=== PATIENT | male | born 1965 | race Caucasian/White ===

== ENCOUNTER 2019-10-08 19:15 | Emergency (ER) | payer OTHER, SELFPAY ==
[2019-10-08 19:26] VITALS: BP 133/90; PULSE 80; RESP 18; TEMP 36.8; O2SAT 100
[2019-10-08 19:30] VITALS: RESP 15; TEMP 36.6
--- NOTE | 2019-10-08 19:42 | ED.FEVER ---
HPI - Fever General Chief Complaint: Fever Stated Complaint: fever, aches Time Seen by Provider: 10/08/19 19:35 Source: patient and family Mode of arrival: ambulatory Limitations: no limitations History of Present Illness HPI Narrative: Patient is a 53-year-old male who presents to emergency department for evaluation of fever chills body aches nausea congestion for the last 4 days with multiple other family members experiencing similar symptoms patient denies vomiting or diarrhea patient on arrival to emergency department in the room in no distress noting that he has been taking [id number] medication with improvement Related Data Allergies Allergy/AdvReac Type Severity Reaction Status Date / Time No Known Allergies Allergy Unknown Verified 10/25/16 19:56 Review of Systems Review of Systems: All systems reviewed & are unremarkable except as noted in HPI and below PMFSH Family History Family History (Updated 04/06/14 @ 07:13 by DOCTOR UNKNOWN) Sibling Depression Father Hypertension Family history of elevated blood lipids Cerebrovascular accident Mother Family history of sudden Other Diabetes mellitus Family history of allergic disorder Family history of cardiovascular disease Family history of coronary artery disease Social History Social History Smoking status: Former smoker Alcohol intake: never Exam Narrative: Exam Narrative: GENERAL: Well-appearing, well-nourished, and in no acute distress. HEAD: Normocephalic, atraumatic. EYES: PERRLA and EOMI. ENT: Nares clear, no rhinorrhea or epistaxis. Mucous membranes moist. NECK: Supple. No adenopathy or masses. CHEST: Clear to auscultation. No respiratory distress. No wheezes rales or rhonchi HEART: Regular rate and rhythm. No murmur heard. EXTREMITIES: Normal range of motion. No edema. SKIN: Warm, dry, no rash. NEURO: No focal deficits. Alert and oriented x3. Cranial nerves II through XII grossly intact PSYCH: Normal mood and affect. 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 Patient in the room in no distress aware of case findings treatment plan and diagnosis Vital Signs Vital signs: Vital Signs Temperature 98.3 F 10/08/19 19:26 Pulse Rate 80 10/08/19 19:26 Respiratory Rate 18 10/08/19 19:26 Blood Pressure 133/90 10/08/19 19:26 Pulse Oximetry 100 10/08/19 19:26 Temperature 98.3 F 10/08/19 19:26 Pulse Rate 80 10/08/19 19:26 Respiratory Rate 18 10/08/19 19:26 Blood Pressure 133/90 10/08/19 19:26 Pulse Oximetry 100 10/08/19 19:26 MDM - Fever MDM Narrative Medical decision making narrative: Patient in the room with fluid in no distress Lab Data Labs: Influenza A Screen Positive Reference Range: Negative Influenza B Screen Negative Reference Range: Negative Discharge Plan Discharge Clinical Impression: Influenza Patient Disposition: Home, Self-Care Condition: Stable Instructions: Antibiotic Form, Influenza (ED) Additional Instructions: Follow up with your primary care provider within 5-7 days. Go to ER for shortness of breath, difficulty breathing, chest pain, fever/chills, weakness, nauseau/vomitting, etc. or any other concerns. Stay well-hydrated Take any prescribed medications as directed. If you do not have a drug allergy to tylenol or motrin and can tolerate it then take tylenol or motrin as needed for discomfort/pain. Prescriptions: New fluticasone propionate [Flonase Allergy Relief] 50 mcg/actuation spray,suspension 1 spray NASAL Q12H PRN (Reason: allergy symptoms) Qty: 9.9 RF: 0 ondansetron 4 mg tablet,disintegrating 4 mg PO Q6H PRN (Reason: nausea and vomiting) Qty: 7 RF: 0 montelukast [Singulair] 10 mg tablet 10 mg PO DAILY Qty: 7 RF: 0 ibuprofen [IBU] 600 mg tablet 600 mg PO TID PRN (Reason: fever or pain) Qty: 7 RF: 0 No Acti
[2019-10-08 20:00] VITALS: BP 101/74; PULSE 100; RESP 19; TEMP 36.7; O2SAT 99
== END 2019-10-08 20:00 | disposition home or self-care (01) ==
LOC: ANHED 19:56
PROVIDERS: Emergency Provider Emergency Medicine; PCP Family Medicine
DX: J10.1 Influenza due to other identified influenza virus with other respiratory manifestations (principal)
CPT/HCPCS: 87804; 99283

== ENCOUNTER 2022-10-03 22:47 | Emergency (ER) | payer BC, SELFPAY ==
--- NOTE | ~2022-10-03 | CT_ITS ---
EXAMINATION: CTA chest abdomen pelvis DATE: 10/04/2022 00:56 INDICATION: Left scapular pain radiating down left arm. Evaluate for aortic dissection TECHNIQUE: Computed tomography angiography (CTA) of the chest, abdomen and pelvis was performed with 100 mL Omnipaque-350 intravenous contrast timed to evaluate the pulmonary arteries. Coronal maximum i ntensity projection 3D-reconstructions were created by the technologist. Automated exposure control a nd iterative reconstruction technique were employed. Exam dose: 1064.47 mGy-cm total exam DLP. COMPARISON: 10/28/2016 PA and lateral chest 12/21/2013 CT abdomen pelvis FINDINGS: There is no evidence of pulmonary embolism. No thoracic or abdominal aortic aneurysm or dissection. No hilar or mediastinal mass lesion or lymphadenopathy. Normal heart size. No pericardial or pleural effusion. Small sliding hiatal hernia. Status post cholecystectomy Status post right nephrectomy. No hepatic space-occupying mass lesion is evident. No bile duct or pancreatic duct dilatation. No ramos creatic mass lesion or calcification. Normal splenic size. Normal morphology of the adrenal glands. There are 2 probable hypernephromas of the left kidney, measuring approximately 3.5 cm at the anterio r upper pole and approximately 1.4 cm in the posteromedial mid left kidney. No left urinary tract calculus or hydroureteronephrosis. The urinary bladder appears unremarkable. Mi ld prostate enlargement. No intraperitoneal or retroperitoneal or pelvic mass lesion or adenopathy or ascites is noted otherwi se. Diverticulosis of the colon; no CT evidence of diverticulitis. There is a prominent epicardial talus: But no bowel obstruction. Normal appendix. No intraperitoneal free air. Approximately 3.3 x 3.6 cm fat-containing umbilical hernia. Prominent degenerative disc disease at L4-5 and L5-S1. No suspicious osteolytic or osteoblastic lesio ns. IMPRESSION: Suspected left hypernephromas Status right nephrectomy Status post cholecystectomy Small sliding hiatal hernia Diverticulosis of the colon No evidence of thoracic or abdominal aortic aneurysm or dissection Reviewed, dictated and finalized at [facility]. Reviewed, dictated and finalized at [facility]. 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
--- NOTE | 2022-10-03 22:49 | ECG_ITS ---
Measurements Intervals [place] Rate: 60 P: 31 GA: 187 QRS: 20 QRSD: 89 T: 50 QT: 415 QTc: 417 Interpretive Statements SINUS RHYTHM WITHIN NORMAL LIMITS NO PREVIOUS ECG AVAILABLE FOR COMPARISON Electronically Signed On 10-04-2022 7:55:06 QUICK SERVICE TECHNICIAN by Reg Rosales M.D.
[2022-10-03 23:04] VITALS: BP 201/94; PULSE 68; RESP 20; TEMP 37; O2SAT 100
--- NOTE | 2022-10-03 23:31 | ED.EXTPRO ---
HPI - Extremity Problem General Chief complaint: Extremity Problem,Nontraumatic <Maryjane Bales PA-C - Last Filed: 10/06/22 17:16> Stated complaint: shoulder pain <Maryjane Bales PA-C - Last Filed: 10/06/22 17:16> Time Seen by Provider: 10/03/22 23:14 <Maryjane Bales PA-C - Last Filed: 10/06/22 17:16> History of Present Illness HPI Narrative: 56-year-old male with a history of hypertension and hyperlipidemia reports for acute onset left scapular pain prior to arrival. Patient states he was changing his shirt when he began experiencing the pain. Reports it is sharp pain that radiates down his left arm. Denies paresthesias, weakness, neck pain. Reports he has never had pain like this before. States he initially put pain patches over his left scapula but took them off because he did not like the smell. Denies headache, vision changes, numbness or weakness, loss of bowel or bladder control or retention, saddle anesthesia, ataxia, chest pain, shortness of breath, abdominal pain, n/v/d. Patient reports he did take his blood pressure medications today. States his BP at home runs about 130/90. <Maryjane Bales PA-C - Last Filed: 10/06/22 17:16> Related Data Allergies/Adverse reactions: Allergies Allergy/AdvReac Type Severity Reaction Status Date / Time No Known Allergies Allergy Unknown Verified 07/23/22 10:07 <Maryjane Bales PA-C - Last Filed: 10/06/22 17:16> Review of Systems Review of Systems: CONSTITUTIONAL: Denies fever, chills EYES: Denies visual changes, redness, or discharge. ENT: Denies rhinorrhea, congestion, sore throat, or otalgia. CARDIOVASCULAR: Denies chest pain, palpitations, or edema. RESPIRATORY: Denies cough or dyspnea. GASTROINTESTINAL: Denies abdominal pain, nausea, vomiting, or diarrhea. GENITOURINARY: Denies dysuria or hematuria. SKIN: Denies rash or itching. MUSCULOSKELETAL: See HPI NEUROLOGIC: Denies headache, numbness, dizziness, or weakness. PSYCHIATRIC: Denies anxiety or depression. <Maryjane Bales PA-C - Last Filed: 10/06/22 17:16> [facility] Past Medical History Medical History: Medical History Acute bronchitis, unspecified Acute sinusitis, unspecified Acute upper respiratory infection, unspecified Allergic rhinitis, unspecified BMI 28.0-28.9,adult BMI 29.0-29.9,adult BMI 30.0-30.9,adult Bronchitis, not specified as acute or chronic Cough due to bronchospasm Dietary counseling and surveillance (08/12/17) Dysfunction of right eustachian tube Elevated blood pressure reading Encounter for immunization (06/18/15) Gastro-esophageal reflux disease without esophagitis Irregular heartbeat Low kidney function Other asthma Schatzki's ring Unspecified asthma, uncomplicated <Maryjane Bales PA-C - Last Filed: 10/06/22 17:16> Family History Family History: Family History Sibling Depression Father Hypertension Family history of elevated blood lipids Cerebrovascular accident Mother Family history of sudden Other Diabetes mellitus Family history of allergic disorder Family history of cardiovascular disease Family history of coronary artery disease <Maryjane Bales PA-C - Last Filed: 10/06/22 17:16> Social History Social History: Social History Smoking status: Former smoker (1997) Second hand tobacco smoke exposure: Yes Alcohol intake: never Substance use: never Substance use type: does not use Living arrangements: with family Occupation/Education: occupation 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 HEAD: Nor
[2022-10-03 23:34] VITALS: BP 178/105
[2022-10-03 23:35] VITALS: BP 173/102
[2022-10-03 23:43] LABS: Basophils Percent Auto 0.5 % (0.2-1.2); Eosinophils Absolute Auto 0.2 K/mm3 (0-0.3); Hematocrit 45.5 % (42.0-52.0); Immature Granulocyte Absolute 0.01 K/mm3 (0.00-0.031); Immature Granulocyte Percent A 0.2 % (0-0.5); Lymphocytes Absolute Auto 1.99 K/mm3 (0.9-3.2); Lymphocytes Percent Auto 32.8 % (18.3-44.2); Mean Corpuscular Hemoglobin 29.6 pg (26-34); Mean Corpuscular Volume 89.9 fl (80-100); Mean Platelet Volume 10.1 fl (7.4-10.4); Monocytes Absolute Auto 0.7 K/mm3 (0.1-0.6); Monocytes Percent Auto 11.7 % (2.6-8.5); Neutrophils Absolute Auto 3.1 K/mm3 (1.3-6.7); Neutrophils Percent Auto 50.8 % (45.5-73.1); Platelet Count Result 228 k/mm3 (150-375); Red Blood Count 5.06 M/mm3 (4.6-6.20); Red Cell Distribution Width 13.4 % (11.5-14.5); White Blood Count 6.1 K/mm3 (4.5-10.0)
[2022-10-03 23:51] VITALS: BP 158/105; PULSE 77; RESP 16; O2SAT 100
[2022-10-03] MEDS: CYCLOBENZAPRINE HCL 10 MG TABLET PO (23:51)
[2022-10-03 23:57] LABS: Alanine Aminotransferase 33 U/L (6-50); Albumin Level 4.5 g/dL (3.5-5.1); Alkaline Phosphatase 105 U/L (38-126); Anion Gap 7 mmol/L (8-16); Aspartate Amino Transferase 29 U/L (17-59); Bilirubin,Total 0.6 mg/dL (0.2-1.3); Blood Urea Nitrogen 14 mg/dL (9-20); Calcium 8.9 mg/dL (8.4-10.2); Carbon Dioxide 27 mmol/L (22-30); Chloride 105 mmol/L (98-107); Estimated CRCL calculation 66 ml/min; Estimated Glomerular Filt Rate > 60; Glucose 135 mg/dL (65-110); Potassium 3.8 mmol/L (3.4-5.0); Sodium 139 mmol/L (137-145)
[2022-10-04] VITALS (20 sets, daily range): BP systolic 126–183; BP diastolic 76–109; PULSE 58–85; RESP 12–21
[2022-10-04 00:09] LABS: NT Pro B Type Natriuretic Pept < 20 pg/mL (19.9-100); Troponin I < 0.012 ng/mL (0.000-0.034)
[2022-10-04] MEDS: MORPHINE SULFATE (*CRX) 4 MG/ML INJ IV PUSH (01:37)
[2022-10-04 02:52] LABS: Troponin I < 0.012 ng/mL (0.000-0.034)
[2022-10-04 02:58] LABS: Troponin I < 0.012 ng/mL (0.000-0.034)
== END 2022-10-04 04:12 | disposition home or self-care (01) ==
PROVIDERS: Emergency Provider Physician Assistant; PCP Family Medicine
DX: S46.912A Strain of unspecified muscle, fascia and tendon at shoulder and upper arm level, left arm, initial encounter (principal); I16.0 Hypertensive urgency; I10 Essential (primary) hypertension; E78.5 Hyperlipidemia, unspecified; J45.909 Unspecified asthma, uncomplicated; K21.9 Gastro-esophageal reflux disease without esophagitis; Z87.891 Personal history of nicotine dependence; X58.XXXA Exposure to other specified factors, initial encounter
CPT/HCPCS: 36415; 71275; 74174; 80053; 83880; 84484; 85025; 93005; 99284; A9270; J2270; Q9967

== ENCOUNTER 2022-10-30 13:45 | Outpatient (CLI) | payer BC, SELFPAY ==
--- NOTE | ~2022-10-30 | MR_ITS ---
EXAMINATION: MR abdomen wo/w con INDICATION: Indeterminate left kidney masses on CT, history of right nephrectomy TECHNIQUE: Coronal SSFSE ARC, WATER:coronal LAVA-FLEX, Coronal 2D FIESTA FatSat, Axial SSFSE BH ARC, Axial 3D DualEcho BH, Axial SSFSE-IR, Axial DWI b=500, Axial 2D FIESTA FatSat, pre and dynamic postco ntrast Axial LAVA ARC, postcontrast Coronal In and Opposed phase LAVA FLEX COMPARISON: 10/04/2022 CONTRAST: Multihance, 20 cc FINDINGS: There are changes of cholecystectomy and right nephrectomy. There is a 3.8 x 3.1 cm mass in the left kidney upper pole/mid kidney which is mildly T1 hyperintense and demonstrates heterogeneous T2 signal intensity. The mass demonstrates heterogeneous enhancement after contrast administration. There is a 1.3 x 1.3 cm round mass in the posterior aspect of the left mid kidney which is essentiall y T1 and T2 isointense with slightly heterogeneous internal enhancement after contrast administration . The liver, spleen, pancreas, and adrenal glands are normal. No pathologically enlarged abdominal ly mph nodes are identified. There is a moderate volume of colonic stool. There are no dilated loops of bowel. IMPRESSION: 1. Two left kidney masses suspicious for renal cell carcinoma. Reviewed, dictated and finalized at [facility].
== END 2022-10-30 13:46 | disposition home or self-care (01) ==
PROVIDERS: PCP Family Medicine; Visit Provider Physician Assistant Medical
DX: N28.89 Other specified disorders of kidney and ureter (principal)
CPT/HCPCS: 74183; A9577

== ENCOUNTER 2023-02-02 05:07 | Inpatient (IN) | payer BC, SELFPAY ==
[2023-02-02] VITALS (35 sets, daily range): BP systolic 126–184; BP diastolic 86–117; PULSE 65–133; RESP 17–48; TEMP 36.3–37.4; O2SAT 90–99; BMI 36.5; BMI 36.3
--- NOTE | ~2023-02-02 | XR_ITS ---
EXAMINATION: XR chest 1V portable Exam Date/Time: 02/02/2023 18:13 CDT HISTORY: SOA Comparison: 10/28/2016. RESULT: Lines, tubes, and devices: Cholecystectomy clips. Lungs and pleura: Low volumes with crowding. Segmental/lobar airspace disease in the left lower lung . Cardiomediastinal silhouette: Stable. Other: No acute osseous or upper abdominal finding. IMPRESSION: Left lower lobe airspace disease may represent atelectasis or pneumonia. Reviewed, dictated and finalized at location K.
--- NOTE | ~2023-02-02 | CT_ITS ---
Non-contrast CT scan of the Abdomen and Pelvis Clinical indication: Abdominal pain Technique: 2.5 mm axial scans were obtained through the abdomen and pelvis without intravenous or or al contrast. Dose reduction technique was used on this scan by utilizing automated exposure control a nd iterative reconstruction technique. The dose-length product (DLP) was 857.70 mGy-cm. COMPARISON: 10/04/2022 Findings: Images through the lung bases reveal partially imaged moderate left pleural effusion, with extensive, possible complete, left lower lobe atelectasis. There is minimal right pleural effusion w ith partial right lower lobe atelectasis.. The liver, spleen, pancreas, left kidney, and adrenals appear normal. Patient is status post cholecys tectomy and right nephrectomy. There is no aortic aneurysm. There is no evidence of bowel obstruction. Fat-containing umbilical and ventral hernias are present. There is small to moderate abdominopelvic ascites. Small bubbles of pneumoperitoneum are present, par ticularly in the left upper quadrant region. There is soft tissue gas along the anterior abdominal wa ll, at the left upper quadrant, bilateral lower quadrants, and extending just anterior subcutaneous s oft tissues in the pelvis and into the upper perineum. There is infiltrative change in the mesentery in the right mid abdomen. Images through the pelvis were performed. Urinary bladder unremarkable. Prostate gland and seminal ve sicles are unremarkable. Impression: Small to moderate abdominopelvic ascites. If there is any concern for urinary extravasation given bambi arent history of recent left renal procedure, then consider CT IVP for further evaluation for extrava sation of contrast. Small amount of pneumoperitoneum, as well as extensive soft tissue gas along the abdominal wall, as a ll presumably postoperative in nature, with history of recent surgery/procedure. Previously identified left renal masses are poorly evaluated on noncontrast CT scan. Infiltrative change in the right mesentery could reflect mesenteric edema, or possibly developing ome ntal infarct. Moderate left pleural effusion with extensive left lower lobe atelectasis, and minimal right pleural effusion with partial right lower lobe atelectasis. Small fat-containing umbilical and ventral hernias, unchanged. Reviewed, dictated and finalized at location . Impression: Small to moderate abdominopelvic ascites. If there is any concern for urinary e xtravasation given apparent history of recent left renal procedure, then consid er CT IVP for further evaluation for extravasation of contrast. Small amount of pneumoperitoneum, as well as extensive soft tissue gas along th e abdominal wall, as all presumably postoperative in nature, with history of re cent surgery/procedure. Previously identified left renal masses are poorly evaluated on noncontrast CT scan. Infiltrative change in the right mesentery could reflect mesenteric edema, or p ossibly developing omental infarct. Moderate left pleural effusion with extensive left lower lobe atelectasis, and minimal right pleural effusion with partial right lower lobe atelectasis. Small fat-containing umbilical and ventral hernias, unchanged.
--- NOTE | ~2023-02-02 | CT_ITS ---
EXAMINATION: CT abdomen pelvis wo con DATE: 02/02/2023 17:36 INDICATION: epigastric pain, condition change. TECHNIQUE: Computed tomography (CT) of the abdomen and pelvis was performed without intravenous contr ast. Automated exposure control and iterative reconstruction technique were employed. The dose-length product was 1675.26 mGy-cm. COMPARISON: Same date at 7:41 AM. FINDINGS: Lower thorax: Stable moderate left and small right pleural effusions. Stable bibasilar atelectasis/co nsolidation. Liver: Normal. Biliary/Gallbladder: Gallbladder is absent. No bile duct dilation. Pancreas: No mass or duct dilation. Spleen: Normal. Adrenals:No mass. Kidneys: Hyperdense material associated with the left kidney, possibly postsurgical in nature. Perine phric fluid along the posterior aspect of the kidney may represent postoperative hematoma. Status pos t right nephrectomy GI tract: No small or large bowel dilation. Normal appendix. Mesentery/Peritoneum: Moderate ascites, slightly increased in volume. Increasing size of the somewhat loculated appearing anterior pararenal and left paracolic gutter fluid collections that may be in co mmunication with the perirenal space as well as the peritoneal fluid. Similar infiltrative change in the right mesentery which may represent edema or omental infarct. Retroperitoneum: No mass. Pelvis: Pelvic organs are within normal limits. Soft Tissues: Uncomplicated fat-containing umbilical hernia. Bones: No acute osseous finding. IMPRESSION: Generally increasing volume of the moderate intra-abdominal fluid. Similar degree of mild pneumoperitoneum. Similar moderate subcutaneous gas in the lower abdomen. Stab le bibasilar atelectasis/consolidation and small bilateral effusions. Somewhat loculated appearing fluid collections in the anterior pararenal space and left paracolic gut ter could represent early abscess formation from bowel perforation/postoperative infection, postopera tive hemorrhage, or urinoma. Reviewed, dictated and finalized at location K. IMPRESSION: Generally increasing volume of the moderate intra-abdominal fluid. Similar degree of mild pneumoperitoneum. Similar moderate subcutaneous gas in t he lower abdomen. Stable bibasilar atelectasis/consolidation and small bilatera l effusions. Somewhat loculated appearing fluid collections in the anterior pararenal space and left paracolic gutter could represent early abscess formation from bowel pe rforation/postoperative infection, postoperative hemorrhage, or urinoma.
--- NOTE | ~2023-02-02 | XR_ITS ---
EXAMINATION: XR retrograde pyelo w/stent LT DATE: 02/02/2023 20:00 CDT INDICATION: LEFT RETRO W/STENT PLACEMENT . TECHNIQUE: 7 fluoroscopic images of the left abdomen and pelvis were obtained during left retrograde pyelography with stent placement performed by the surgeon. I was not present in the operating room. F luoroscopy exposure time was 92 seconds. DAP 1.65 mGym2. COMPARISON: CT abdomen and pelvis, same date FINDINGS: Contrast fills a normal-appearing left collecting system. Wire access obtained to the upper collectin g system. Post stent deployment, the proximal coil projects over the renal pelvis. The distal coil wa s not imaged. IMPRESSION: Fluoroscopic documentation of left retrograde pyelography with stent placement. Please refer to the o perative note for complete procedural details . Reviewed, dictated and finalized at location K. IMPRESSION: Fluoroscopic documentation of left retrograde pyelography with stent placement. Please refer to the operative note for complete procedural details .
[2023-02-02 05:35] LABS: Basophils Percent Auto 0.3 % (0.2-1.2); Eosinophils Absolute Auto 0.4 K/mm3 (0-0.3); Eosinophils Percent Auto 3.2 % (0-4.4); Hematocrit 43.9 % (42.0-52.0); Hemoglobin 14.7 g/dL (14.0-18.0); Immature Granulocyte Absolute 0.09 K/mm3 (0.00-0.031); Immature Granulocyte Percent A 0.6 % (0-0.5); Lymphocytes Absolute Auto 0.96 K/mm3 (0.9-3.2); Lymphocytes Percent Auto 6.9 % (18.3-44.2); Mean Corpuscular HGB Conc 33.5 g/dl (32-36); Mean Corpuscular Hemoglobin 30.5 pg (26-34); Mean Corpuscular Volume 91.1 fl (80-100); Mean Platelet Volume 9.8 fl (7.4-10.4); Monocytes Absolute Auto 1.3 K/mm3 (0.1-0.6); Neutrophils Absolute Auto 11.2 K/mm3 (1.3-6.7); Platelet Count Result 353 k/mm3 (150-375); Red Blood Count 4.82 M/mm3 (4.6-6.20); Red Cell Distribution Width 13.4 % (11.5-14.5); White Blood Count 13.9 K/mm3 (4.5-10.0)
[2023-02-02 06:23] LABS: Alanine Aminotransferase 155 U/L (6-50); Albumin Level 3.8 g/dL (3.5-5.1); Alkaline Phosphatase 224 U/L (38-126); Anion Gap 9 mmol/L (8-16); Aspartate Amino Transferase 93 U/L (17-59); Bilirubin,Total 0.8 mg/dL (0.2-1.3); Blood Urea Nitrogen 43 mg/dL (9-20); Calcium 8.7 mg/dL (8.4-10.2); Carbon Dioxide 24 mmol/L (22-30); Chloride 99 mmol/L (98-107); Estimated CRCL calculation 15 ml/min; Estimated Glomerular Filt Rate 11; Glucose 123 mg/dL (65-110); Lipase 284 U/L (23-300); Potassium 4.2 mmol/L (3.4-5.0); Sodium 132 mmol/L (137-145)
[2023-02-02 06:37] LABS: Appearance Urine Clear (Clear); Bacteria Urine None Seen /hpf; Bilirubin Urine Negative (Negative); Blood Urine Negative (Negative); Color Urine Yellow (Yellow); Glucose Urine UA Negative (Negative); Ketones Urine 1+ mg/dL (Negative); Leukocyte Esterase Ur Negative LEU/UL (Negative); Nitrate Urine Negative (Negative); Non Pathogenic Casts 0-2; Protein Urine 1+ mg/dL (Negative); RBC Urine 0-2 /hpf (0-2); Specific Grav Ur 1.025 (1.001-1.035); Spermatozoa Urine Present; Squamous Epithelial Cell Urine None seen /hpf (Few); WBC Urine 0-5 /hpf
[2023-02-02 06:38] LABS: Add Urine Microscopic? YES
[2023-02-02] MEDS: MORPHINE SULFATE (*CRX) 4 MG/ML INJ IV PUSH ×2 (07:31→16:32)
[2023-02-02] MEDS: SODIUM CHLORIDE 0.9% IV 1,000 ML 999 ML IV CONT (07:33)
--- NOTE | 2023-02-02 07:37 | PC.NURSE ---
assumed care from Cat. Pt resting in stretcher at this time
--- NOTE | 2023-02-02 09:09 | ED.ABDPAIN ---
HPI - Abdominal Pain General Chief Complaint: Abdominal Pain Stated Complaint: abd pain Time Seen by Provider: 02/02/23 06:59 History of Present Illness HPI narrative: Patient is a 57-year-old male who presents ER with lower abdominal pain. Reports he went from lying to sitting this morning had sudden onset pain in his lower abdomen. [place] like tearing going down towards his groin. It hurts with any type of movement. No new swelling. Patient is 1 week status post partial nephrectomy on the left side for renal mass. It was performed by Dr. Prado at [facility]. Patient denies any fevers or chills or sweats. He has been managing his pain with oxycodone at home. Reports no bowel movement or passage of gas in 3 days. Related Data Allergies Allergy/AdvReac Type Severity Reaction Status Date / Time No Known Allergies Allergy Unknown Verified 02/02/23 18:10 [facility] Past Medical History Medical History Acute bronchitis, unspecified Acute sinusitis, unspecified Acute upper respiratory infection, unspecified Allergic rhinitis, unspecified BMI 28.0-28.9,adult BMI 29.0-29.9,adult BMI 30.0-30.9,adult BMI 34.0-34.9,adult Bronchitis, not specified as acute or chronic Cough due to bronchospasm Dietary counseling and surveillance (08/12/17) Dysfunction of right eustachian tube Elevated blood pressure reading Encounter for immunization (06/18/15) Gastro-esophageal reflux disease without esophagitis Irregular heartbeat Low kidney function Other asthma Schatzki's ring Unspecified asthma, uncomplicated Family History Family History Sibling Depression Father Hypertension Family history of elevated blood lipids Cerebrovascular accident Mother Family history of sudden Other Diabetes mellitus Family history of allergic disorder Family history of cardiovascular disease Family history of coronary artery disease Social History Social History Smoking status: Former smoker (1997) Second hand tobacco smoke exposure: Yes Alcohol intake: never Substance use: never Substance use type: does not use Living arrangements: with family Occupation/Education: occupation 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 HEAD: Normocephalic, atraumatic. EYES: PERRL and EOMI. ENT: Mucous membranes moist. CHEST: Clear to auscultation. No respiratory distress. HEART: Regular rate and rhythm. Normal peripheral pulses. ABDOMEN: Soft, mildly distended abdomen that is without localizing tenderness, normal bowel sounds. Crepitus palpated over the lower abdomen and pubic region. Well-healing surgical sites with some mild bruising. EXTREMITIES: Normal range of motion. 1+ edema. SKIN: Warm, dry, no rash. NEURO: Alert and oriented x3. PSYCH: Normal mood and affect. Course Course Emergency Course: Patient resting comfortably. Informed of results. Excepted by the hospitalist service at [facility] at [address] Kearns, the nurse practitioner for the urology group is also being contacted. Patient is receiving IV hydration and is feeling improved. 1915: Patient had been hydrating throughout the day awaiting a bed at [facility]. He developed sudden onset epigastric pain around 1730. Patient received morphine and Dilaudid. He was reevaluated and sent for emergent CT of the abdomen pelvis without contrast to see if there were any changes. The symptoms occurred while speaking with his primary urologist. After reassessment of the patient and reevaluation the CT scan it was determined by urology that the patient should go to the OR here at [place] to have a stent placed placed additionally ajay
--- NOTE | 2023-02-02 12:14 | PC.NURSE ---
follow up call with [facility] waiting for their hospitalist to call back
--- NOTE | 2023-02-02 12:50 | PC.NURSE ---
[facility] called and states that pt is accepted but no bed ready at this time They got more information about pt and states that they will look for a bed and call when one is available
[2023-02-02] MEDS: SODIUM CHLORIDE 0.9% IV 1,000 ML 150 ML IV CONT (12:55)
--- NOTE | 2023-02-02 13:20 | PC.NURSE ---
Pt meal ordered at this time.
--- NOTE | 2023-02-02 15:20 | PC.NURSE ---
Pt placed in a hospital bed at this time. still waiting for bed placement at [facility]
--- NOTE | 2023-02-02 17:00 | PC.NURSE ---
1700: Pt calling out stating that he is having increase in upper abd pain and having trouble breathing. This RN observed pt has increased work of breathing and appears in more pain. notified.
[2023-02-02] MEDS: HYDROmorphone HCL INJ (*CRX) 1 MG/ML SYR IV PUSH (17:13)
--- NOTE | 2023-02-02 18:15 | PC.NURSE ---
Checked on pt. Pt diaphoretic and hypoxic at this time. Placed pt on 2 L NC. MD notified and ordered to stop IV fluids at this time. Pt states the pain is better but still feels SOB.
--- NOTE | 2023-02-02 19:40 | WPDANESEPPF ---
Anes - Initial Pre Proc Eval Procedure: Operation Date: 02/02/23 20:00 Proposed Procedures p Cysto, RPG, Stone Ext, Stent Placement(Left) - Zoltan Grimes MD Date/Time: 02/02/23 19:40 Surgeon: Zoltan Grimes MD Pre Op Diagnosis: abd pain Patient Data Age: 57 Gender: M Height: 1.63 m Weight: 95.25 kg Last Vital Signs Temp 37.4 C 02/02/23 18:05 Pulse 128 H 02/02/23 19:01 Resp 31 H 02/02/23 19:01 BP 140/94 H 02/02/23 19:01 Pulse Ox 94 02/02/23 19:01 O2 Del Method Nasal Cannula 02/02/23 18:18 O2 Flow Rate 2 02/02/23 18:18 Allergies Allergy/AdvReac Type Severity Reaction Status Date / Time No Known Allergies Allergy Unknown Verified 02/02/23 18:10 Home Medications Medication Instructions Recorded Confirmed Type albuterol sulfate 90 mcg/actuation 2 inh inhalation Q4H PRN shortness 08/05/22 10/07/22 Rx aerosol inhaler of breath or wheezing #8.5 grams amlodipine 5 mg tablet 5 mg PO DAILY #90 tabs 08/05/22 10/07/22 Rx montelukast 10 mg tablet 10 mg PO QHS #90 tabs 08/05/22 10/07/22 Rx (Singulair) rosuvastatin 20 mg tablet (Crestor) 20 mg PO DAILY #90 tabs 08/05/22 10/07/22 Rx loratadine 5 mg-pseudoephedrine ER 1 tablet PO Q12H PRN allergy 01/07/23 Rx 120 mg tablet,extended symptoms #60 tabs release,12hr (Claritin-D 12 Hour) Laboratory Tests 02/02/23 02/02/23 05:24 05:58 WBC 13.9 H K/mm3 (4.5-10.0) RBC 4.82 M/mm3 (4.6-6.20) Hgb 14.7 g/dL (14.0-18.0) Hct 43.9 % (42.0-52.0) MCV 91.1 fl (80-100) MCH 30.5 pg (26-34) MCHC 33.5 g/dl (32-36) RDW 13.4 % (11.5-14.5) Plt Count 353 D k/mm3 (150-375) MPV 9.8 fl (7.4-10.4) Immature Gran % (Auto) 0.6 H % (0-0.5) Neut % (Auto) 80.0 H % (45.5-73.1) Lymph % (Auto) 6.9 L % (18.3-44.2) [place] % (Auto) 9.0 H % (2.6-8.5) Eos % (Auto) 3.2 % (0-4.4) Baso % (Auto) 0.3 % (0.2-1.2) Lymph # (Auto) 0.96 K/mm3 (0.9-3.2) [place] # (Auto) 1.3 H K/mm3 (0.1-0.6) Eos # (Auto) 0.4 H K/mm3 (0-0.3) Baso # (Auto) 0.0 K/mm3 (0.0-0.1) Abs Immat Gran (auto) 0.09 H K/mm3 (0.00-0.031) Absolute Neuts (auto) 11.2 H K/mm3 (1.3-6.7) Absolute Nucleated RBC 0.0 K/mm3 (0.0-0.012) Nucleated RBC % 0.0 % (0.0-0.2) Sodium 132 L mmol/L (137-145) Potassium 4.2 mmol/L (3.4-5.0) Chloride 99 mmol/L (98-107) Carbon Dioxide 24 mmol/L (22-30) Anion Gap 9 mmol/L (8-16) BUN 43 H D mg/dL (9-20) Creatinine 5.30 H mg/dL (0.7-1.3) Estim Creat Clear Calc 15 ml/min Estimated GFR 11 L (59 - ) Glucose 123 H mg/dL (65-110) Calcium 8.7 mg/dL (8.4-10.2) Total Bilirubin 0.8 mg/dL (0.2-1.3) AST 93 H U/L (17-59) ALT 155 H U/L (6-50) Alkaline Phosphatase 224 H U/L (38-126) Total Protein 7.0 g/dL (6.3-8.2) Albumin 3.8 g/dL (3.5-5.1) Lipase 284 U/L (23-300) Urine Color Yellow (Yellow) Urine Appearance Clear (Clear) Urine pH 5.0 (5.0-9.0) Ur Specific [place] 1.025 (1.001-1.035) Urine Protein 1+ H mg/dL (Negative) Urine Glucose (UA) Negative mg/dL (Negative) Urine Ketones 1+ H mg/dL (Negative) Ur Blood (Man) Negative (Negative) Urine Nitrate Negative (Negative) Urine Bilirubin Negative (Negative) Urine Urobilinogen 1.0 mg/dL (<2.0) Leukocyte Esterase Rfl Negative CALE/UL (Negative) Urine RBC 0-2 /hpf (0-2) Urine WBC 0-5 /hpf Ur Squamous Epith Cells None seen /hpf (Few) Urine Bacteria None seen /hpf Urine Casts 0-2 Sperm Presence Present Patient hx anesthesia problems: none Family hx anesthesia problems: none Results Review: All pre-operat
--- NOTE | 2023-02-02 19:44 | WPDHPUPDATE1 ---
History and Physical Update Update Date/Time: 02/02/23 19:44 History and Physical has been reviewed, including an updated exam of the patient. There are NO changes in the patient's condition. Risks, benefits, and alternatives have been discussed and questions answered. Patient agrees to proceed with procedure. Proceed with cystoscopy, left retrograde pyelogram left ureteral stent placement
--- NOTE | 2023-02-02 19:44 | PM.IMHP ---
H&P: HPI History of Present Illness Date/Time: 02/02/23 19:44 Chief Complaint: Abdominal pain with left perirenal fluid collection possible left urinoma Narrative: Is a 57-year-old male with a solitary left kidney who just underwent a partial robotic nephrectomy by Dr. Conde last Thursday. Patient was discharged from [facility] on Thursday and been doing well but then developed significant abdominal pain. He presented emergency room here at [place] as there were no beds available at [facility]. CT scan revealed abdominal distention with some ascites as well as a fluid collection around the left kidney. Patient had been waiting 12 hours for transfer but again no beds have been available. At this point time we are going to proceed with a cystoscopy, left retrograde pyelogram left stent placement and Little catheter placement for maximal drainage. He will require percutaneous drain to be placed for drainage of the demetria renal fluid. Review of Systems Review of Systems: All systems reviewed & are unremarkable except as noted in HPI and below PMFSH Past Medical History Medical History Acute bronchitis, unspecified Acute sinusitis, unspecified Acute upper respiratory infection, unspecified Allergic rhinitis, unspecified BMI 28.0-28.9,adult BMI 29.0-29.9,adult BMI 30.0-30.9,adult BMI 34.0-34.9,adult Bronchitis, not specified as acute or chronic Cough due to bronchospasm Dietary counseling and surveillance (08/12/17) Dysfunction of right eustachian tube Elevated blood pressure reading Encounter for immunization (06/18/15) Gastro-esophageal reflux disease without esophagitis Irregular heartbeat Low kidney function Other asthma Schatzki's ring Unspecified asthma, uncomplicated Surgical History Surgical History Hx of partial nephrectomy last week 01/26/23 Family History Family History Sibling Depression Father Hypertension Family history of elevated blood lipids Cerebrovascular accident Mother Family history of sudden Other Diabetes mellitus Family history of allergic disorder Family history of cardiovascular disease Family history of coronary artery disease Social History Social History Smoking status: Former smoker (1997) Second hand tobacco smoke exposure: Yes Alcohol intake: never Substance use: never Substance use type: does not use Living arrangements: with family Occupation/Education: occupation 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 Gender identity (if verbalized by the patient): Male Meds Home Medications and Allergies Home Medications Medication Instructions Recorded Confirmed Type albuterol sulfate 90 mcg/actuation 2 inh inhalation Q4H PRN shortness 08/05/22 10/07/22 Rx aerosol inhaler of breath or wheezing #8.5 grams amlodipine 5 mg tablet 5 mg PO DAILY #90 tabs 08/05/22 10/07/22 Rx montelukast 10 mg tablet 10 mg PO QHS #90 tabs 08/05/22 10/07/22 Rx (Singulair) rosuvastatin 20 mg tablet (Crestor) 20 mg PO DAILY #90 tabs 08/05/22 10/07/22 Rx loratadine 5 mg-pseudoephedrine ER 1 tablet PO Q12H PRN allergy 01/07/23 Rx 120 mg tablet,extended symptoms #60 tabs release,12hr (Claritin-D 12 Hour) Allergies Allergy/AdvReac Type Severity Reaction Status Date / Time No Known Allergies Allergy Unknown Verified 02/02/23 18:10 Vital Signs Vital Signs - 24 hr 02/02/23 05:09 02/02/23 05:17 02/02/23 07:00 Temperature 36.3 C L Pulse Rate 113 H 110 H 108 H Respiratory Rate 31 H 33 H 26 H Blood Pressure 150/104 H 142/97 H 129/95 H Pulse Oximetry 97 96 96 Oxygen Delivery Room Air Oxygen Flow Rate 02/02/23 07:15 02/02/23 07:30 02/02/23 09:15 Temperature Pulse Rate 109
[2023-02-02] MEDS: LIDOCAINE HCL 2% GEL UROJET 10 ML PKG MUCOUS MEM (20:24)
--- NOTE | 2023-02-02 20:32 | W.PM.PROC2 ---
Procedure Note - Detailed Date of Procedure 02/02/23 Pre-op Diagnosis abd pain, possible urine leak with urinoma Post-op Diagnosis Same Procedure Performed Cystoscopy, left retrograde pyelogram, left stent placement 4.8 [place] contour, complex Little catheter placement Surgeon Zoltan Grimes MD Anesthesia General Description of Procedure Patient is taken the operative suite correctly identified. Once anesthesia was obtained was placed in dorsal lithotomy position and prepped and draped usual sterile fashion. Twenty-two [place] scope was inserted the bladder. He has some mild lateral lobe hypertrophy. The bladder itself has no tumors. The left orifice was cannulated with a [place] and a pyelogram was performed. It was noted that with gentle pressure and with advancement of the contrast there was extravasation it near the upper pole. We were able to manipulate a guidewire into what appears to be the renal pelvis although it is very difficult to visualize. We attempted to place a 6 [place] contour stent over a Super Stiff wire but could not advance it past the distal ureter. Is unclear why this resistance was met. None the less it was unable replaced and thus a 4.8 [place] contour stent was then placed with what appears to be the proximal end coiled in the renal pelvis and the distal in the bladder. 2% viscous lidocaine was inserted urethra. Sixteen [place] Little catheter was placed with 10 cc in the balloon. He was taken recovery stable condition. Will discuss with radiologist regarding placement of a percutaneous drain Estimated Blood Loss 0 Drains Yes Packing No Pathology None sent Complications No immediate complications Condition Stable Disposition PACU
[2023-02-02] MEDS: LACTATED RINGERS 1,000 ML 30 ML IV CONT (20:36)
[2023-02-02 21:09] LABS: Glucose Point of Care 123 mg/dl (65-105)
[2023-02-02 21:26] LABS: Anion Gap 10 mmol/L (8-16); Blood Urea Nitrogen 44 mg/dL (9-20); Calcium 8.3 mg/dL (8.4-10.2); Carbon Dioxide 18 mmol/L (22-30); Chloride 105 mmol/L (98-107); Estimated CRCL calculation 16 ml/min; Estimated Glomerular Filt Rate 12; Glucose 129 mg/dL (65-110); Potassium 5.2 mmol/L (3.4-5.0); Sodium 133 mmol/L (137-145)
--- NOTE | 2023-02-02 22:11 | ADMGEN ---
This patient, Bear Mcrae, was admitted to IMU Room 200-01. Patient/family oriented to hospital policies and general routines including ID bracelet, bed and alarms, visiting hours, pain management, procedures, bathroom and other care routines, personal items, smoking policy, room service/diet, and visiting hours. Information on how to activate the Rapid Response Team has been discussed. Patient/Family are encouraged to report perceived risks to care and to ask questions if they do not understand what they are told or what they should do.
[2023-02-02] MEDS: ceFAZolin 1 GM/NS 50 ML 1 GM/50 ML BAG IVPB (23:21)
--- NOTE | 2023-02-02 23:23 | PM.IMCN ---
Assessment and Plan Assessment and plan (1) Acute postoperative abdominal pain: Code(s): G89.18 - Other acute postprocedural pain; R10.9 - Unspecified abdominal pain Status: Acute (2) Acute on chronic renal failure: Qualifiers: Acute renal failure type: unspecified Chronic kidney disease stage: stage 3 (moderate) Chronic kidney disease stage 3 subtype: unspecified whether 3a or 3b Qualified Code(s): N17.9 - Acute kidney failure, unspecified; N18.30 - Chronic kidney disease, stage 3 unspecified Code(s): N17.9 - Acute kidney failure, unspecified; N18.9 - Chronic kidney disease, unspecified Status: Acute (3) Leakage of urine from ureter: Code(s): N28.89 - Other specified disorders of kidney and ureter Status: Acute Plan The patient underwent emergent cystoscopy to treat acutely developing year old well. Ureteral stent was placed per Urology. We were consulted for medical management. Although acutely ill-appearing postoperatively the patient reports he appears significantly improved. He is having drainage of urine from his bladder. As I was discussing further plan with the patient and his son who are at bedside nursing staff came into notify me that the patient now has a bed at [facility]. Patient is not having any active pain. The patient has acute on chronic kidney injury due to your [place] and likely complications of his right partial nephrectomy in the setting of patient with unilateral kidney. Will continue IV fluid hydration. The patient's creatinine is already improved compared to original value. Patient would benefit from bicarb infusion instead of his normal saline. The patient now has hyperkalemia due to his kidney injury. Will avoid further nephrotoxic medications. The hyperkalemia is mild. Will hold off on any other treatment. But again bicarb would be beneficial. Before these orders could be entered the patient was transferred to [facility]. The patient's blood pressures are stable. Norvasc can be held for the time being. The patient's case was discussed with the patient and his son at bedside with the patient's permission. All questions were answered. HPI Data of Consult Consult date: 02/03/23 Requesting Physician: Zoltan Grimes MD Primary Care Provider: Terrance Sanchez MD Consult Narrative Narrative: Bear Mcrae is a 57 year old male with a past medical history of essential hypertension, hyperlipidemia, allergic rhinitis, chronic kidney disease stage III and prior right nephrectomy for benign pathology who presented to the ER via EMS due to lower abdominal pain after recent left partial nephrectomy. The patient had partial nephrectomy 01/26/2023 due to to masses. He got notification recently that those masses were benign pathology. He reports that after his nephrectomy he had a somewhat prolonged hospital stay and was just discharged from the hospital on the . He reports that he has been having trouble getting out of bed on his own and has been requiring assistance. He just generally has felt ill. His pain is been poorly controlled on oxycodone and Tylenol. He has been having decreased frequency of bowel movements with his last bowel movement 3 days ago. He denies any dysuria. He has had decreased urine output. He thought he was drinking enough fluids to stay hydrated but despite this has not made as much urine as usual. He denies any hematuria. He has been having a mild headache. He has been having some mild nausea but no vomiting. He reports that he rolled over onto his right side in the afternoon in order to get up. When he went to sit up he felt a sudden tearing sensation that went from his mid abdomen down into his left groin. The pain was severe in intensity. It worse with any type of movement. He reports that he could not get up on his own and called his son to help him get to the hospital. He denies any fever
--- NOTE | 2023-03-04 07:59 | TS_ITS ---
This report was moved to the correct visit on 03/05/2023. Original report was signed by Zoltan Grimes MD on 03/04/23 0802. Transfer Discharge Sum: Prov Provider Date of admission: 02/02/23 Primary care physician: Terrance Sanchez MD Admitting clinician: DR Grimes Attending physician on admission: oZltan Grimes Attending physician on discharge: Zoltan Grimes Anticipated date of transfer: 02/02/23 Receiving physician/facility: [facility] DS: Admitting Diagnosis Discharge Date 02/16/23 Admitting Diagnosis Left flank pain with renal insufficiency and urinoma DS: Discharge Diagnosis Discharge Diagnosis (1) Acute on chronic renal failure: Qualifiers: Acute renal failure type: unspecified Chronic kidney disease stage: stage 3 (moderate) Chronic kidney disease stage 3 subtype: unspecified whether 3a or 3b Qualified Code(s): N17.9 - Acute kidney failure, unspecified; N18.30 - Chronic kidney disease, stage 3 unspecified Code(s): N17.9 - Acute kidney failure, unspecified; N18.9 - Chronic kidney disease, unspecified Status: Acute Assessment and Plan: Patient presented to the emergency room with abdominal and flank pain. CT scan revealed a significant urinoma with elevated creatinine level. Patient was taken to the operative suite where a ureteral stent was placed. Patient is required a percutaneous drain placement and was transferred to [facility] stable condition. (2) Acute postoperative abdominal pain: Code(s): G89.18 - Other acute postprocedural pain; R10.9 - Unspecified abdominal pain Status: Acute Assessment and Plan: See above Transfer Discharge Sum: Med Medications Active and Home Medications: Home Medications amlodipine 5 mg tablet 5 mg PO DAILY #90 tabs 08/05/22 [Rx Confirmed 02/25/23] montelukast 10 mg tablet (Singulair) 10 mg PO QHS #90 tabs 08/05/22 [Rx Confirmed 02/25/23] rosuvastatin 20 mg tablet (Crestor) 20 mg PO DAILY #90 tabs 08/05/22 [Rx Confirmed 02/25/23] loratadine 5 mg-pseudoephedrine ER 120 mg tablet,extended release,12hr (Claritin-D 12 Hour) 1 tablet PO Q12H PRN allergy symptoms #60 tabs 02/11/23 [Rx Confirmed 02/25/23] albuterol sulfate 90 mcg/actuation aerosol inhaler 2 inh inhalation Q4H PRN shortness of breath or wheezing #8.5 grams 02/25/23 [Rx Confirmed 02/25/23] fluticasone furoate 100 mcg-vilanterol 25 mcg/dose inhalation powder (Breo Ellipta) 1 inh inhalation Q24H #60 ea 02/25/23 [Rx Confirmed 02/25/23] Transfer Discharge Sum: Hosp Hospital Course Hospital course: Bear Mcrae is a 57 year old male who underwent a partial nephrectomy at an outside facility. When he presented to our emergency room with abdominal pain was found to have a urinoma. In addition he had a renal insufficiency. Patient was taken to the operative suite where a ureteral stent was placed. Patient was then transferred to [facility] Pap test for further management with placement of a percutaneous drain by Interventional Radiology. Time Spent with Patient Time attestation: Total time spent providing and/or coordinating transfer services: This report may have been done utilizing a voice recognition system. Attempts have been made to correct errors. However, there may be uncorrected grammatical, spelling, and recognition errors present. Report Initialized date/time: Zoltan Grimes MD 03/04/23 / 0759 Electronically signed by: Zoltan Grimes MD 03/04/23 0802 [facility]
== END 2023-02-02 23:49 | disposition short-term general hospital (02) | DRG 654 ==
LOC: ANHED 12:22 → ANHSURGERY 19:10 → ANHIMU 21:46
PROVIDERS: Emergency Medicine; Admitting Provider Urology; Emergency Provider Emergency Medicine; PCP Family Medicine; Visit Provider Urology
PROC: 0T7B8DZ Dilation of Bladder with Intraluminal Device, Via Natural or Artificial Opening Endoscopic (ICD-10-PCS; CPT 52352; principal; 2023-02-02 20:00)
DX: N28.89 Other specified disorders of kidney and ureter (principal); J90 Pleural effusion, not elsewhere classified; R39.0 Extravasation of urine; E87.5 Hyperkalemia; E78.5 Hyperlipidemia, unspecified; G89.18 Other acute postprocedural pain; I12.9 Hypertensive chronic kidney disease with stage 1 through stage 4 chronic kidney disease, or unspecified chronic kidney disease; J45.909 Unspecified asthma, uncomplicated; K21.9 Gastro-esophageal reflux disease without esophagitis; N18.30 Chronic kidney disease, stage 3 unspecified; N17.9 Acute kidney failure, unspecified; R10.9 Unspecified abdominal pain; Z90.5 Acquired absence of kidney; Z87.891 Personal history of nicotine dependence
CPT/HCPCS: 36415; 71045; 74176; 74420; 80048; 80053; 81001; 82948; 83690; 85025; 96361; 96365; 96375; 96376; 99285; C1758; C1769; C2617; J0330; J0690; J0696; J1100; J1170; J2270; J2405; J2704; J3010; J7030; J7120; Q9966

== ENCOUNTER 2023-02-16 17:18 | Emergency (ER) | payer BC, SELFPAY ==
[2023-02-16 17:26] VITALS: BP 150/73; PULSE 80; RESP 20; TEMP 36.5; O2SAT 100
--- NOTE | 2023-02-16 18:33 | ED.MALEGU ---
HPI - Male Genitourinary General Chief complaint: Urogenital-Male <Maryjane Bales PA-C - Last Filed: 02/16/23 19:30> Stated complaint: blocked cath <ROBERT Morton Last Filed: 02/16/23 19:30> Time Seen by Provider: 02/16/23 18:00 <ROBERT Morton Last Filed: 02/16/23 19:30> Source: patient <ROBERT Cao Last Filed: 02/17/23 01:07> Mode of arrival: ambulatory <ROBERT Cao Last Filed: 02/17/23 01:07> Limitations: no limitations <ROBERT Cao Last Filed: 02/17/23 01:07> History of Present Illness HPI Narrative: 57-year-old male with a history of CKD , left kidney mass, and partial nephrectomy reports for evaluation of decreased urine output in his Little catheter today. Patient states when he got home from work, he noticed 60 cc of urine in his Little catheter bag and 300 cc drained from his nephrostomy bag, which is abnormal. States he should normally have a small amount of urine in his nephrostomy bag and a large amount of his Little. States he called Dr. Conde's ('s urologist) office for this who advised the patient to come to the ED and to have a larger Little catheter placed. On 01/26, patient had tumors removed on his left kidney, on 02/02 he had a nephrostomy and stent placed. States he then had a Little catheter placed on 02/07 due to there being too much drainage out of the nephrostomy tube. He denies abdominal pain, back pain, fevers. He went to [facility] ED yesterday fo the same issue. Reports he was having decreased urine output in his Little catheter starting 3 days ago, went to [facility] who checked labs and a urinalysis. States his creatinine increased from 1.5 to 2.1, his urinalysis was unremarkable. He states he had his Little irrigated and a clot was removed, he received 1 L of fluids and was discharged home. States his Little was draining fine when he got home last night, then began having problems again this morning. <Maryjane Bales PA-C - Last Filed: 02/16/23 19:30> Related Data Allergies/Adverse reactions: Allergies Allergy/AdvReac Type Severity Reaction Status Date / Time No Known Allergies Allergy Unknown Verified 02/16/23 18:12 <Maryjane Bales PA-C - Last Filed: 02/16/23 19:30> Review of Systems Review of Systems: CONSTITUTIONAL: Denies fever, chills EYES: Denies visual changes, redness, or discharge. ENT: Denies rhinorrhea, congestion, sore throat, or otalgia. CARDIOVASCULAR: Denies chest pain, palpitations, or edema. RESPIRATORY: Denies cough or dyspnea. GASTROINTESTINAL: Denies abdominal pain, nausea, vomiting, or diarrhea. GENITOURINARY: See HPI SKIN: Denies rash or itching. MUSCULOSKELETAL: Denies back pain, joint pain, or myalgia. NEUROLOGIC: Denies headache, numbness, dizziness, or weakness. PSYCHIATRIC: Denies anxiety or depression. <Maryjane Bales PA-C - Last Filed: 02/16/23 19:30> [facility] Past Medical History Medical History: Medical History Bronchitis, not specified as acute or chronic Chronic kidney disease With baseline creatinine between 1.5-2 Essential hypertension Gastro-esophageal reflux disease without esophagitis Hyperlipidemia Irregular heartbeat Schatzki's ring Seasonal allergies Unspecified asthma, uncomplicated Vitamin D deficiency <Maryjane Bales PA-C - Last Filed: 02/16/23 19:30> Surgical History Surgical History: Surgical History History of right nephrectomy Due to calcifications and benign disease Hx of partial nephrectomy 01/26/2023 with pathology returning as benign masses x2 <Maryjane Bales PA-C - Last Filed: 02/16/23 19:30> Family History Family History: Family History Sibling Depression Father Hypertension Family history of elevated blood
--- NOTE | 2023-02-16 19:35 | PC.NURSE ---
Urinary Catheter irrigated at this time by this RN. No issues with irrigation- no visible clots.
[2023-02-16 19:44] LABS: Basophils Absolute Auto 0.1 K/mm3 (0.0-0.1); Basophils Percent Auto 0.9 % (0.2-1.2); Eosinophils Absolute Auto 0.6 K/mm3 (0-0.3); Hematocrit 37.9 % (42.0-52.0); Hemoglobin 12.3 g/dL (14.0-18.0); Immature Granulocyte Absolute 0.03 K/mm3 (0.00-0.031); Immature Granulocyte Percent A 0.4 % (0-0.5); Lymphocytes Absolute Auto 1.75 K/mm3 (0.9-3.2); Lymphocytes Percent Auto 25.6 % (18.3-44.2); Mean Corpuscular HGB Conc 32.5 g/dl (32-36); Mean Corpuscular Hemoglobin 29.9 pg (26-34); Mean Platelet Volume 9.9 fl (7.4-10.4); Monocytes Absolute Auto 0.9 K/mm3 (0.1-0.6); Monocytes Percent Auto 13.7 % (2.6-8.5); Neutrophils Absolute Auto 3.5 K/mm3 (1.3-6.7); Neutrophils Percent Auto 51.4 % (45.5-73.1); Platelet Count Result 365 k/mm3 (150-375); Red Blood Count 4.12 M/mm3 (4.6-6.20); Red Cell Distribution Width 13.1 % (11.5-14.5); White Blood Count 6.8 K/mm3 (4.5-10.0)
[2023-02-16 19:49] LABS: Appearance Urine Cloudy (Clear); Bacteria Urine None Seen /hpf; Bilirubin Urine Negative (Negative); Blood Urine 3+ (Negative); Color Urine Yellow (Yellow); Glucose Urine UA Negative (Negative); Ketones Urine Negative (Negative); Leukocyte Esterase Ur 1+ LEU/UL (Negative); Nitrate Urine Negative (Negative); Protein Urine 2+ mg/dL (Negative); RBC Urine >100 /hpf (0-2); Specific Grav Ur 1.015 (1.001-1.035); Squamous Epithelial Cell Urine Occasional /hpf (Few); Urobilinogen Urine 0.2 mg/dL (<2.0); pH Urine 5.5 (5.0-9.0)
[2023-02-16 19:51] LABS: Add Urine Microscopic? YES
[2023-02-16 19:59] LABS: Alanine Aminotransferase 89 U/L (6-50); Albumin Level 3.8 g/dL (3.5-5.1); Alkaline Phosphatase 107 U/L (38-126); Anion Gap 2 mmol/L (8-16); Aspartate Amino Transferase 48 U/L (17-59); Bilirubin,Total 0.4 mg/dL (0.2-1.3); Blood Urea Nitrogen 28 mg/dL (9-20); Calcium 9.1 mg/dL (8.4-10.2); Carbon Dioxide 28 mmol/L (22-30); Chloride 103 mmol/L (98-107); Estimated CRCL calculation 34 ml/min; Estimated Glomerular Filt Rate 32; Glucose 103 mg/dL (65-110); Potassium 4.3 mmol/L (3.4-5.0); Sodium 133 mmol/L (137-145)
[2023-02-16 21:07] VITALS: BP 139/99; PULSE 83; RESP 14; O2SAT 98
--- NOTE | 2023-03-04 07:58 | P.TS_ITS ---
Transfer Discharge Sum: Prov Provider Date of admission: 02/02/23 Primary care physician: Terrance Sanchez MD Admitting clinician: DR Grimes Attending physician on admission: Zoltan Grimes Attending physician on discharge: Zoltan Grimes Anticipated date of transfer: 02/02/23 Receiving physician/facility: [facility] [place] DS: Admitting Diagnosis Discharge Date 02/16/23 Admitting Diagnosis Left flank pain with renal insufficiency and urinoma DS: Discharge Diagnosis Discharge Diagnosis (1) Acute on chronic renal failure: Qualifiers: Acute renal failure type: unspecified Chronic kidney disease stage: stage 3 (moderate) Chronic kidney disease stage 3 subtype: unspecified whether 3a or 3b Qualified Code(s): N17.9 - Acute kidney failure, unspecified; N18.30 - Chronic kidney disease, stage 3 unspecified Code(s): N17.9 - Acute kidney failure, unspecified; N18.9 - Chronic kidney disease, unspecified Status: Acute Assessment and Plan: Patient presented to the emergency room with abdominal and flank pain. CT scan revealed a significant urinoma with elevated creatinine level. Patient was taken to the operative suite where a ureteral stent was placed. Patient is required a percutaneous drain placement and was transferred to [facility] stable condition. (2) Acute postoperative abdominal pain: Code(s): G89.18 - Other acute postprocedural pain; R10.9 - Unspecified abdominal pain Status: Acute Assessment and Plan: See above Transfer Discharge Sum: Med Medications Active and Home Medications: Home Medications amlodipine 5 mg tablet 5 mg PO DAILY #90 tabs 08/05/22 [Rx Confirmed 02/25/23] montelukast 10 mg tablet (Singulair) 10 mg PO QHS #90 tabs 08/05/22 [Rx Confirmed 02/25/23] rosuvastatin 20 mg tablet (Crestor) 20 mg PO DAILY #90 tabs 08/05/22 [Rx Confirmed 02/25/23] loratadine 5 mg-pseudoephedrine ER 120 mg tablet,extended release,12hr (Claritin-D 12 Hour) 1 tablet PO Q12H PRN allergy symptoms #60 tabs 02/11/23 [Rx Confirmed 02/25/23] albuterol sulfate 90 mcg/actuation aerosol inhaler 2 inh inhalation Q4H PRN shortness of breath or wheezing #8.5 grams 02/25/23 [Rx Confirmed 02/25/23] fluticasone furoate 100 mcg-vilanterol 25 mcg/dose inhalation powder (Breo Ellipta) 1 inh inhalation Q24H #60 ea 02/25/23 [Rx Confirmed 02/25/23] Transfer Discharge Sum: Hosp Hospital Course Hospital course: Bear Mcrae is a 57 year old male who underwent a partial nephrectomy at an outside facility. When he presented to our emergency room with abdominal pain was found to have a urinoma. In addition he had a renal insufficiency. Patient was taken to the operative suite where a ureteral stent was placed. Patient was then transferred to was [facility] Pap test for further management with placement of a percutaneous drain by Interventional Radiology. Time Spent with Patient Time attestation: Total time spent providing and/or coordinating transfer services:
== END 2023-02-16 21:13 | disposition home or self-care (01) ==
PROVIDERS: Emergency Provider Physician Assistant; PCP Family Medicine
DX: R39.12 Poor urinary stream (principal); R82.90 Unspecified abnormal findings in urine; N18.9 Chronic kidney disease, unspecified; I10 Essential (primary) hypertension; E78.5 Hyperlipidemia, unspecified; Z87.891 Personal history of nicotine dependence
CPT/HCPCS: 36415; 51702; 80053; 81001; 85025; 87086; 87088; 99283

== ENCOUNTER 2024-10-19 14:04 | Outpatient (CLI) | payer OTHER, SELFPAY ==
--- NOTE | ~2024-10-19 | XR_ITS ---
CHEST RADIOGRAPH, PA AND LATERAL CLINICAL HISTORY: rule out pneumonia, COUGH X 2 WEEKS . COMPARISON: 02/02/2023 TECHNIQUE: PA and lateral views of the chest. FINDINGS The cardiomediastinal silhouette is unremarkable. The lungs are clear. Visualized osseous structures and soft tissues are unremarkable. IMPRESSION: No focal infiltrate or effusion. Reviewed, dictated and finalized at location A.
--- OUTSIDE RECORDS SUMMARY | 2024-10-19 15:54 | XMS_ITS | Referral Summary ---
Author Organization [facility] Address [address] [place] [address] Care Team Providers Care Shovel Operator Name Role Phone Terrance Sanchez MD Primary Care Provider + [phone] Tolu Conde MD Unavailable [phone] Allergies No known active allergies Medications amLODIPine (NORVASC) 5 mg tablet Take 1 tablet (5 mg total) by mouth nightly 12/29/2022 Active montelukast (SINGULAIR) 10 mg tablet Take 1 tablet (10 mg total) by mouth nightly 12/29/2022 Active rosuvastatin (CRESTOR) 20 mg tablet Take 1 tablet (20 mg total) by mouth nightly 12/29/2022 Active albuterol HFA (PROVENTIL HFA,VENTOLIN HFA,PROAIR HFA) 90 mcg/actuation inhaler Inhale 2 puffs every 6 (six) hours as needed for wheezing Active omeprazole (PriLOSEC) 20 mg capsule Take 1 capsule (20 mg total) by mouth daily as needed (reflux) Active loratadine-pseu doephedrine (CLARITIN-D 12-hour) 5-120 mg tablet extended release 12 hr Take 1 tablet by mouth every 12 (twelve) hours Active vitamin b complex tablet Take 1 tablet by mouth daily Active cholecalciferol 25 mcg (1,000 unit) tablet Take 1 tablet (1,000 Units total) by mouth daily Active ferrous gluconate 324 mg (37.5 mg of elemental iron) tablet Take 1 tablet (324 mg total) by mouth daily Active calcium carbonate (TUMS) 500 mg (200 mg elemental iron) chewable tablet Take 1 tablet/chew tab (500 mg total) by mouth daily Active Active Problems Problem Noted Date Diagnosed Date Urine leak in renal parenchyma after kidney harris splant 02/22/2023 Urinary retention 02/22/[address] 02/19/2023 Abdominal pain 02/05/2023 Acute renal failure (ARF) 02/03/2023 H/O partial nephrectomy 02/03/2023 Primary hypertension 02/03/2023 Other constipation 02/03/2023 History of right nephrectomy 02/03/2023 Pleural effusion, left 02/03/2023 Generalized abdominal pain 02/03/2023 Shortness of breath 02/03/2023 Renal mass 01/27/2023 Left renal mass 01/26/2023 Renal mass, left 01/09/2023 Social History Tobacco Use Types Packs/Day Years Used Date Smoking Tobacco: Former Cigarettes Q uit: 1990 Passive Smoke Exposure: Past Smokeless Tobacco: Never Tobacco Cessation:Counseling Given: Not Answered Social Connection and Isolat ion Panel [NHANES] Answer Date Recorded In a typical week, how many times do you talk on the phone with family, friends, or neighbors? More than three times a week 02/23/2023 How often do you get togethe r with friends or relatives? More than three times a week 02/23/2023 How often do you attend chur ch or gnosticism services? More than 4 times per year 02/23/2023 Do you belong to any clubs o r organizations such as faith groups, unions, fraternal or athletic groups, or school groups? No 02/23/2023 How often do you attend meet ings of the clubs or organizations you belong to? Never 02/23/2023 Are you , , di vorced, , never , or living with a partner? 02/23/2023 AUDIT-C Answer Date Recorded Q1: How often do you have a drink containing alc ohol? 2-4 times a month 01/20/2023 Q2: How many drinks containi ng alcohol do you have on a typical day when you are drinking? 1 or 2 01/20/2023 Q3: How often do you have si x or more drinks on one occasion? Never 01/20/2023 Overall Financial Resource Strain (CARDIA) Answe r Date Recorded How hard is it for you to pa y for the very basics like food, housing, medical care, and heating? Not hard at all 02/23/2023 Hunger Vital Sign Answer Date Recorded Within the past 12 months, y ou worried that your food would run out before you got the money to buy more. Never true 02/24/20 23 Within the past 12 months, t he food you bought just didn't last and you didn't have money to get more. Never true 02/23/2023 PRAPARE - Transportation Answer Date Re corded In the past 12 months, has l ack of transportation kept you from medical appointments or from getting medications? No 02/07 In the past 12 months, has l ack of transportation kept you from meetings, work, or from getting things needed for daily living? No 02/23/2023 Housing Stability Vital Sign Answer Diallo e Recorded In the last 12 months, was t here a time when you were not able to pay the mortgage or rent on time? No 02/23/2023 In the last 12 months, how many places have you lived? 1 02/23/2023 In the last 12 months, was t here a time when you did not have a steady place to sleep or slept in a nursing home (including now)? No 02/23/2023 Personal Safety Answer Date Recorded Have you ever been in or are you currently in a harmful physical or emotional relationship or is someone making you feel afraid or unsafe? 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 Gender Identity Not on file Sexual Orientation Not on file Last Filed Vital Signs Vital Sign Reading Time Taken Comments Blood Pressure 136/87 02/24/2023 11:35 AM CDT Pulse 76 02/24/2023 11:35 AM CDT Temperature 36.2 C (97.1 F) 02/24/2023 11:35 AM CDT Respiratory Rate 18 02/24/2023 11:35 AM CDT Oxygen Saturation 100% 02/24/2023 11:35 AM CDT Inhaled Oxygen Concentration - - Weight 87.5 kg (193 lb) 02/24/2023 10:29 AM CDT Height 162.6 cm (5' 4 ) 02/24/2023 10:29 AM CDT Body Mass Index 33.13 02/24/2023 10:29 AM CDT Plan of Treatment Not on file Medical Devices Implanted Type Area Camp Head Counselor Device Identifier Shelf Expiration Date Model / Serial / Lot [employer] Steffany Hem-O-Yasmin Ligate Nonabsorbable Cartridge Large Chevron Heart Latex Free [id number] - Sn/A - [id number] Implanted:Qty: 6 on 01/26/2023 by Tolu Conde MD at [facility] Clip Left: Kidney [employer] 09/16/2027 [id number] / N/A / Insurance [employer] OOS [employer]ri[employer] OOS BLUE ACC CHOICE OOS Advance Directives For more information, please contact: [phone] * Full Code (Latest Code Status on File) Date Activated Date Inactivated Comments 02/19/2023 11:06 PM 02/24/2023 7:37 PM * Full Code Date Activated Date Inactivated Comments 02/03/2023 2:00 AM 02/07/2023 3:05 PM * Full Code Date Activated Date Inactivated Comments 01/26/2023 4:52 PM 01/30/2023 5:27 PM Care Teams Shovel Operator Relationship Specialty Start Date End Date Terrance Sanchez MD PCP - General Family Medicine 01/20/23 [place] [id number] [place] [address] Consulting Physician Urology 01/30/23
--- OUTSIDE RECORDS SUMMARY | 2024-10-19 15:54 | XMS_ITS | Encounter Summary ---
Author Organization [facility] Address [address] [place] [address] Care Team Providers Care Proof Machine Operator Name Role Phone Terrance Sanchez MD Primary Care Provider + [phone] Tolu Conde MD Unavailable [phone] Encounter Details Date Type Department Care Team (Late st Contact Info) Description 02/17/2023 Telephone [facility] - Interventional Radiology [address] [place] [address] Martell Stearns, RN Social History Tobacco Use Types Packs/Day Years Used Date Smoking Tobacco: Former Cigarettes Q uit: 1990 Passive Smoke Exposure: Past Smokeless Tobacco: Never Social Connection and Isolat ion Panel [NHANES] Answer Date Recorded In a typical week, how many times do you talk on the phone with family, friends, or neighbors? More than three times a week 02/05/2023 How often do you get togethe r with friends or relatives? More than three times a week 02/05/2023 How often do you attend chur ch or congregation services? More than 4 times per year 02/05/2023 Do you belong to any clubs o r organizations such as baptism groups, unions, fraternal or athletic groups, or school groups? No 02/05/2023 How often do you attend meet ings of the clubs or organizations you belong to? Never 02/05/2023 Are you , , di vorced, , never , or living with a partner? 02/05/2023 AUDIT-C Answer Date Recorded Q1: How often [...] care, and heating? Not hard at all 02/05/2023 Hunger Vital Sign Answer Date Recorded Within the past 12 months, y ou worried that your food would run out before you got the money to buy more. Never true 02/06/20 23 Within the past 12 months, t he food you bought just didn't last and you didn't have money to get more. Never true 02/05/2023 PRAPARE - Transportation Answer Date Re corded In the past 12 months, has l ack of transportation kept you from medical appointments or from getting medications? No 01/09 In the past 12 months, has l ack of transportation kept you from meetings, work, or from getting things needed for daily living? No 02/05/2023 Housing Stability Vital Sign Answer Diallo e Recorded In the last 12 months, was t here a time when you were not able to pay the mortgage or rent on time? No 02/05/2023 In the last 12 months, how many places have you lived? 1 02/05/2023 In the last 12 months, was t here a time when you did not have a steady place to sleep or slept in a half-way (including now)? No 02/05/2023 Personal Safety Answer Date Recorded Have you ever been in or are you currently in a harmful physical or emotional relationship or is someone making you feel afraid or unsafe? 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
--- OUTSIDE RECORDS SUMMARY | 2024-10-19 15:54 | XMS_ITS | Clinical Summary ---
Author Organization [facility] Address [address] [place] [address] Care Team Providers Care Base Filler Name Role Phone Terrance Sanchez MD Primary Care Provider + [phone] Tolu Conde MD Unavailable [phone] Allergies No known active allergies Medications [...] renal mass 01/26/2023 Renal mass, left 01/09/2023 Surgical History Surgery Date Site/Laterality Comments LAPAROSCOPIC NEPHRECTOMY Right CHOLECYSTECTOMY 08/10/2009 - 08/09/2010 removed with kidney surgery CT GUIDED DRAINAGE PERITONEA L OR RETROPERITONEAL FLUID COLLECTION 02/03/2023 N/A ABSCESS CATHETER INJECTION 02/20/2023 N/A ABSCESS CATHETER INJECTION 02/24/2023 N/A Medical History Medical History Date Comments Hypertension Hyperlipidemia Asthma Kidney carcinoma, right (HCC) Social History Tobacco Use Types Packs/Day Years [...] 02/23/2023 How often do you attend chur or denominational services? More than 4 times per year 02/23/2023 Do you belong to any clubs o r organizations such as alevism groups, unions, fraternal or athletic groups, or [...] place to sleep or slept in a detention (including now)? No 02/23/2023 Personal Safety Answer Date Recorded Have you ever been in or are you currently in a harmful physical or emotional relationship or is someone making you feel afraid or unsafe? 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 Gender Identity Not on file Sexual Orientation Not on file Obstetrics History Last Filed Vital Signs Vital Sign Reading [...] 02/24/2023 10:29 AM CDT Plan of Treatment Health Maintenance Due Date Last Done Comments Colon Cancer Screening-Colonoscopy 1965 Depression Screening 1965 Hepatitis C Screening 1963 Prostate Cancer Screening-PSA 1963 DTaP/Tdap/Td Vaccine (1 - Tdap) 12/17/1974 Hepatitis B Screening 12/17/1981 Regular Well Visit/Exam 18-64 12/17/1981 Pneumococcal vaccine <65 (1 of 2 - PCV) 12/17/1982 Zoster Vaccine (1 of 2) 12/17/2013 Covid-19 Vaccine (4 - 2023-2 5 season) 2024 06/28/2022, 07/10/2021, 10/16/2020 Influenza Vaccine (#1) 2024 , 07/10/2021, 08/15/2015, Additional history exists Medical Devices Implanted Type Area Evp Global Product Leadership Device Identifier Shelf Expiration Date Model / Serial / Lot [employer] Weck Hem-O-Yasmin Ligate Nonabsorbable Cartridge Large Chevron Heart Latex Free [id number] - Sn/A - [id number] Implanted:Qty: 6 on 01/26/2023 by Tolu Conde MD at [facility] Clip Left: Kidney [employer] 09/16/2027 [id number] / N/A / Insurance [employer] OOS [employer] CHOICE OOS [employer] CHOICE OOS Advance Directives For more information, please contact: [phone] * Full Code (Latest Code Status on File) Date Activated Date Inactivated Comments 02/19/2023 11:06 PM 02/24/2023 7:37 PM * Full Code Date Activated Date Inactivated Comments 02/03/2023 2:00 AM 02/07/2023 3:05 PM * Full Code Date Activated Date Inactivated Comments 01/26/2023 4:52 PM 01/30/2023 5:27 PM Care Teams Base Filler Relationship Specialty Start Date End Date Terrance Sanchez MD PCP - General Family Medicine 01/20/23 [place] [address] [place] [address] Consulting Physician Urology 01/30/23
--- OUTSIDE RECORDS SUMMARY | 2024-10-19 15:54 | XMS_ITS | Clinical Summary ---
Author Organization [facility] Address [address] [place] [address] Phone Care Team Providers Care Girls Tennis Coach Name Role Phone Unavailable Primary Care Provider Unavailabl e Medications Medication Sig Dispensed Refills Start Date End Date Status diphenhydrAMINE (BENADRYL) 25 MG tablet 1 tab/cap qday PRN 01/28/2014 Active omeprazole (PriLOSEC) [address] capsule 1 tab/cap qday 01/28/2014 Acti ve fexofenadine (BERT ALLERGY) 180 MG tablet 1 tab/cap qday 0 01/28/2014 Active fluticasone (FLONASE) 50 MCG/ACT nasal spray 1 spray in each nostril qday 01/28/2014 Active albuterol HFA (PROVENTIL HFA) 108 (90 Base) MCG/ACT inhaler 1 - 2 puffs q6hr PRN 01/28/2014 Active budesonide-formoterol (SYMBICORT) 160-4.5 MCG/ACT inhaler 2 puffs bid 01/28/2014 Active Active Problems Problem Noted Date Diagnosed Date Chronic kidney disease, stage 2 (mild) 4 Other specified abnormal finding of blood chemis try 01/28/2014 Personal history of other malignant neoplasm of kidney 01/28/2014 Acquired absence of kidney 01/28/2014 Asthma 01/28/2014 Overview (10/23/2018): Converted unresolved ICD9, potential mismatch. Allergic rhinitis, cause unspecified 01/28/2014 Overview (10/23/2018): Converted unresolved ICD9, potential mismatch. Gastro-esophageal reflux disease without esophag itis 01/28/2014 Immunizations Name Administration Dates Next Due Influenza TIV (IM) 08/15/2015,07/19/2014 Family History Medical History Relation Comments Cerebrovascular accident Father Heart disease Father Hypertensive disorder Father Kidney disease Neg Hx Kidney stone Neg Hx Relation Status Comments Father Social History Tobacco Use Types Packs/Day Years Used Date Smoking Tobacco: Never Assessed Sex and Gender Information Value Date Recorded Sex Assigned at Not on file Gender Identity Not on file Sexual Orientation Not on file Last Filed Vital Signs Vital Sign Reading Time Taken Comments Blood Pressure 122/72 08/13/2016 12:01 AM LITHOGRAPH PRINTER Sitting, Right Pulse - - Temperature 36.9 C (98.4 F) 08/13/2016 12:01 AM LITHOGRAPH PRINTER Respiratory Rate 18 02/13/2016 12:0 1 AM CDT Oxygen Saturation - - Inhaled Oxygen Concentration - - Weight 95.3 kg (210 lb) 08/13/2016 12:0 1 AM LITHOGRAPH PRINTER Height 172.7 cm (5' 8 ) 08/13/2016 12:0 1 AM LITHOGRAPH PRINTER Body Mass Index 31.93 08/13/2016 12:01 AM LITHOGRAPH PRINTER Plan of Treatment Not on file
--- OUTSIDE RECORDS SUMMARY | 2024-10-19 15:54 | XMS_ITS | Referral Summary ---
Author Organization [facility] Address [address] [place] [address] Care Team Providers Care Nursing Service Administrator Name Role Phone Terrance Sanchez MD Primary Care Provider [phone] Source Comments [facility],non-owned Affiliates and Associated Physician Practices is amultiple site organization consisting of ambulatory clinics and hospital sitesin [place], [place], [place] and [place]. This disclosure is being madepursuant to the Care Everywhere program and may not contain all information available regarding this patient. Last updated 18.[facility] Medications * Be aware that medications may not be up to date on this document. Alwaysverify current medications with the patient. Medication Sig Dispensed Refills Start Date End Date Status albuterol HFA (PROVENTIL HFA) 108 (90 BASE) MCG/ACT inhaler Inhale 2 puffs by mouth q6h PRN (Wheezing). 03/23/2016 Active budesonide-formoterol (SYMBICORT) 160-4.5 MCG/ACT inhaler Inhale 2 puffs by mouth BID. 03/23/2016 Active omeprazole EC (PRILOSEC OTC) 20 MG tablet Take 1 tablet by mouth DAILY. 03/23/2016 Active montelukast (SINGULAIR) 10 MG tablet Take 10 mg by mouth DAILY. 03/23/2016 Active fluticasone propionate (FLONASE) 50 MCG/ACT nasal spray [place] 1 spray into each nostril BID. 03/23/2016 Active Social History Tobacco Use Types Packs/Day Years Used Date Smoking Tobacco: Former Alcohol Use Standard Drinks/Week Comments No 0 (1 standard drink = 0.6 oz pur e alcohol) Sex and Gender Information Value Date Recorded Sex Assigned at Not on file Gender Identity Not on file Sexual Orientation Not on file Last Filed Vital Signs Vital Sign Reading Time Taken Comments Blood Pressure 151/90 03/23/2016 4:41 PM CDT Pulse 69 03/23/2016 4:41 PM CDT Temperature 36.6 C (97.8 F) 03/23/2016 4:41 PM CDT Respiratory Rate 16 03/23/2016 4:41 PM CDT Oxygen Saturation 100% 03/23/2016 4:41 PM CDT Inhaled Oxygen Concentration - - Weight 88.9 kg (196 lb) 03/23/2016 1:21 PM CDT Height 170.2 cm (5' 7 ) 03/23/2016 1:21 PM CDT Body Mass Index 30.7 03/23/2016 1:21 PM CDT Plan of Treatment Not on file Care Teams Nursing Service Administrator Relationship Specialty Start Date End Date Terrance Sanchez MD [address] [place] [address] PCP - General 12/02/11
--- OUTSIDE RECORDS SUMMARY | 2024-10-19 15:54 | XMS_ITS | Clinical Summary ---
Author Organization [facility] Address [address] [place] [address] Care Team Providers Care Watchmaking Teacher Name Role Phone Terrance Sanchez MD Primary Care Provider [phone] Source Comments [facility],non-owned Affiliates and Associated Physician Practices is amultiple site organization consisting of ambulatory clinics and hospital sitesin [place], [place], [place] and [place]. This disclosure is being madepursuant to the Care Everywhere program and may not contain all information available regarding this patient. Last updated 18.[facility] Medications * Be aware that medications may [...] fluticasone propionate (FLONASE) 50 MCG/ACT nasal spray [place] 1 spray into each nostril BID. 03/23/2016 [...] 03/23/2016 1:21 PM CDT Plan of Treatment Health Maintenance Due Date Last Done Comments COLOGUARD (AGES 45-75) - COL ON CA SCREENING 1963 COLON MONITORING 1963 COLONOSCOPY - COLON CA SCREENING 1963 CT COLONOGRAPHY - COLON CA SCREENING 1965 Colorectal Cancer Screening 1963 FIT - COLON CA SCREENING 1963 FLEX SIG - COLON CA SCREENING 1963 LIPID TESTING 1963 HIV SCREENING 12/17/1978 HEPATITIS C SCREENING 12/13/1981 DTAP/TDAP/TD VACCINES (1 - Tdap) 12/17/1982 PNEUMOCOCCAL VACCINE 50+ (1 of 1 - PCV) 12/17/2013 ZOSTER VACCINE (1 of 2) 12/17/2013 COVID-19 VACCINE ( - 2023-2 5 season) 2024 INFLUENZA VACCINE (#1) 2024 DEPRESSION SCREENING 08/10/2024 Respiratory Syncytial Virus (RSV) Vaccine Pt: or over 60 yrs (1 - 1-dose 75+ series) 12/17/2038 HEPATITIS B VACCINE Aged Out No longe r eligible based on patient's age to complete this topic HIB VACCINE Aged Out No longer eligi ble based on patient's age to complete this topic HPV VACCINE Aged Out No longer eligi ble based on patient's age to complete this topic MENINGOCOCCAL (Group B) VACC INE SHARED DECISION-MAKING Aged Out No longer eligibl e based on patient's age to complete this topic MENINGOCOCCAL GROUPS A/C/Y/W VACCINE Aged Out No longer eligible b ased on patient's age to complete this topic PNEUMOCOCCAL VACCINE Aged Out No long er eligible based on patient's age to complete this topic Care Teams Watchmaking Teacher Relationship Specialty Start Date End Date Terrance Sanchez MD [address] [place] [address] PCP - General 12/02/11
--- OUTSIDE RECORDS SUMMARY | 2024-10-19 15:54 | XMS_ITS | Patient Health Summary ---
Author Organization [facility] Address [address] [place] [address] Care Team Providers Care Group Fitness Manager Name Role Phone Terrance Sanchez MD Primary Care Provider [phone] Note from [facility],non-owned Affiliates and Associated Physician Practices is amultiple site organization consisting of ambulatory clinics and hospital sitesin [place], [place], [place] and [place]. This disclosure is being madepursuant to the Care Everywhere program and may not contain all information available regarding this patient. Last updated 18.[facility] Medications * Be aware that medications may not be up to date on this document. Alwaysverify current medications with the patient. * albuterol HFA (PROVENTIL HFA) 108 (90 BASE) MCG/ACT inhaler(Started 03/23/2016) Inhale 2 puffs by mouth q6h PRN (Wheezing). * budesonide-formoterol (SYMBICORT) 160-4.5 MCG/ACT inhaler(Started 03/23/2016) Inhale 2 puffs by mouth BID. * omeprazole EC (PRILOSEC OTC) 20 MG tablet(Started 03/23/2016) Take 1 tablet by mouth DAILY. * montelukast (SINGULAIR) 10 MG tablet(Started 03/23/2016) Take 10 mg by mouth DAILY. * fluticasone propionate (FLONASE) 50 MCG/ACT nasal spray(Started 03/23/2016) Anthony 1 spray into each nostril BID. Social History Tobacco Use Types Packs/Day Years [...] Mass Index 30.7 03/23/2016 1:21 PM CDT Procedures * COMPREHENSIVE METABOLIC PANEL(Performed 03/23/2016) * CBC W AUTO DIFFERENTIAL(Performed 03/23/2016) * CBC W AUTO DIFFERENTIAL(Performed 03/23/2016) Results * CBC W AUTO DIFFERENTIAL (03/23/2016 4:39 PM CDT) Only the most recent of2 resultswithin the time period is included. WBC 6.0 3.5 - 10.5 10 3/uL [facility] RBC 4.64 4.30 - 5.70 10 6/uL [facility] Hemoglobin 14.5 13.5 - 17.5 g/dL [facility] Hematocrit 42.0 39.0 - 50.0 % [facility] MCV 90.5 81.0 - 97.0 fL [facility] MCH 31.3 28.0 - 34.0 pg [facility] MCHC 34.5 32.0 - 36.0 g/dL [facility] Platelet Count 234 150 - 400 10 3/uL [facility] RDW-SD 44.8 36.0 - 50.0 fL [facility] RDW-CV 13.6 11.2 - 14.8 % [facility] MPV 10.5 9.3 - 12.8 fL [facility] nRBC Absolute 0.00 0 10 3/uL [facility] nRBC Auto 0.0 0 /100 WBC [facility] Neutrophils % 63.6 35.0 - 70.0 % [facility] Lymphocytes % 23.6 19.7 - 55.1 % [facility] Monocytes % 10.8 3.0 - 15.0 % [facility] Eosinophils % 1.7 0.0 - 6.0 % [facility] Basophil % 0.3 0.0 - 1.5 % [facility] Neutrophils Absolute 3.8 1.6 - 7.0 10 3/uL [facility] Lymphocyte Absolute 1.4 0.8 - 2.9 10 3/uL [facility] Monocytes Absolute 0.65 0.14 - 0.66 10 3/uL [facility] Eosinophils Absolute 0.10 0.00 - 0.22 10 3/uL [facility] Basophils Absolute 0.02 0.00 - 0.06 10 3/uL [facility] Immature Granulocytes % 0.3 0.0 - 1.0 % [facility] Blood specimen (specimen) BLOOD SPECIMEN / Unknown 03/23/2016 4:39 PM CDT 03/23/2016 4:49 PM CDT Shameka Patel MD LAB - HEMATOLOGY ORD ERABLES Performing Organization Address City/State/[facility] Co de Phone Number [address] [phone] * (ABNORMAL) COMPREHENSIVE METABOLIC PANEL (03/23/2016 4:39 PM CDT) BUN 19 7 - 26 mg/dL [facility] Creatinine 1.5(H) 0.6 - 1.2 mg/dL [facility] Sodium 140 136 - 145 mmol/L [facility] Potassium 4.3 3.5 - 4.5 mmol/L [facility] Chloride 106 98 - 107 mmol/L [facility] CO2 26 22 - 29 mmol/L [facility] Glucose 95 70 - 115 mg/dL [facility] Calcium 9.4 8.4 - 10.2 mg/dL [facility] Protein Total 7.5 6.0 - 8.3 g/dL [facility] Albumin 3.8 3.4 - 5.0 g/dL [facility] Bilirubin Total 0.5 0.2 - 1.2 mg/dL [facility] Alkaline Phosphatase 112 40 - 150 Units/L [facility] ALT 24 0 - 55 Units/L [facility] AST 18 5 - 34 Units/L [facility] Anion Gap 12 8 - 18 [facility] BUN/Creatinine Ratio 13 7 - 23 [facility] Osmolality Calculated 292 270 - 300 mOsm/kg [facility] Albumin/Globulin Ratio 1.0(L) 1.1 - 2.3 [facility] eGFR 49(L) >60 mL/min/1.7 3 m2 [facility] Blood specimen (specimen) BLOOD SPECIMEN / Unknown 03/23/2016 4:39 PM CDT 03/23/2016 4:49 PM CDT Shaemka Patel MD LAB - CHEMISTRY [facility]YA C[facility] Organization Address City/State/ZIP Co de Phone Number [facility] [address] [phone] Care Teams Group Fitness Manager Relationship Specialty Start Date End Date Terrance Sanchez MD [address] [place] [address] PCP - General 12/02/11
== END 2024-10-19 14:05 | disposition home or self-care (01) ==
PROVIDERS: PCP Family Medicine
DX: R06.02 Shortness of breath (principal)
CPT/HCPCS: 71046

== ENCOUNTER 2025-04-12 21:49 | Emergency (ER) | payer OTHER, SELFPAY ==
--- NOTE | ~2025-04-12 | XR_ITS ---
EXAM/PROCEDURE: XR chest 2V - 04/13/2025 1:45 CDT HISTORY: 59 years old Male with cough TECHNIQUE: Two view(s) of the chest. COMPARISON: None available. FINDINGS: LUNGS/ PLEURA: No focal consolidation. No appreciable pneumothorax or large pleural effusion. HEART/ MEDIASTINUM: Heart appears normal in size. BONES: No acute osseous abnormality. OTHER: Right upper quadrant cholecystectomy clips. IMPRESSION: No acute process. Reviewed, dictated and finalized at location N. IMPRESSION: No acute process.
[2025-04-12 21:51] VITALS: BP 172/102; PULSE 95; RESP 18; TEMP 36.8; O2SAT 98
[2025-04-13] VITALS (8 sets, daily range): BP systolic 134–169; BP diastolic 92–98; PULSE 75–105; RESP 16–20; TEMP 36.7–36.8; O2SAT 99–100
[2025-04-13 00:08] LABS: Influenza A QL RT-PCR Negative (Negative); Influenza B QL RT-PCR Negative (Negative); RSV RNA, RT-PCR Negative (Negative); SARS-CoV-2 RNA PCR Negative (Negative)
--- OUTSIDE RECORDS SUMMARY | 2025-04-13 00:18 | XMS_ITS | Encounter Summary ---
Author Organization [facility] Address [address] [place] [address] Care Team Providers Care Tungsten Tender Name Role Phone Terrance Sanchez MD Primary Care Provider [phone] Tolu Conde MD Unavailable [phone] Encounter Details Date Type Department Care Team (Late st Contact Info) Description 02/17/2023 Telephone [facility] - Interventional Radiology [address] [place] [address] Martell Stearns, RN Social History Tobacco Use Types Packs/Day Years Used Date Smoking Tobacco: Former Cigarettes Q uit: 1990 Passive Smoke Exposure: Past Smokeless Tobacco: Never Social Connection and Isolation Panel Answer Date Recorded In a typical week, how many times do you talk on the phone with family, friends, or neighbors? More than three times a week 02/05/2023 How often do you get togethe r with friends or relatives? More than three times a week 02/05/2023 How often do you attend chur or faith services? More than 4 times per year 02/05/2023 Do you belong to any clubs o r organizations such as roman catholic groups, unions, fraternal or athletic groups, or [...] place to sleep or slept in a longterm (including now)? No 02/05/2023 Personal Safety Answer Date Recorded Have you ever been in or are you currently in a harmful physical or emotional relationship or is someone making you feel afraid or unsafe? 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
--- OUTSIDE RECORDS SUMMARY | 2025-04-13 00:18 | XMS_ITS | Clinical Summary ---
Author Organization [facility] Address [address] [place] [address] Phone Care Team Providers Care Field Crop Farmer Name Role Phone Unavailable Primary Care Provider Unavailabl e Medications diphenhydrAMINE (BENADRYL) 25 MG tablet 1 tab/cap qday PRN 01/28/2014 Active omeprazole (PriLOSEC) [address] capsule 1 tab/cap qday 01/28/2014 Active fexofenadine (BERT ALLERGY) 180 MG tablet 1 tab/cap qday 0 01/28/2014 Active fluticasone (FLONASE) 50 MCG/ACT nasal spray 1 spray in each nostril qday 01/28/2014 Active albuterol HFA (PROVENTIL HFA) 108 (90 [place]) MCG/ACT inhaler 1 - 2 puffs q6hr PRN 01/28/2014 Active budesonide-form oterol (SYMBICORT) 160-4.5 MCG/ACT inhaler 2 puffs bid [...] reflux disease without esophag itis 01/28/2014 Immunizations Immunization Administration Dates Next Due Influenza TIV (IM) [...] at Not on file Legal Sex Male 9:49 AM MST Gender Identity Not on file Sexual Orientation Not on file Last Filed Vital Signs Vital Sign Reading Time Taken Comments Blood Pressure 122/72 08/13/2016 12:01 AM SALES AGENT Sitting, Right Pulse - - Temperature 36.9 C (98.4 F) 08/13/2016 12:01 AM SALES AGENT Respiratory Rate 18 02/13/2016 12:0 1 AM CDT Oxygen Saturation - - Inhaled Oxygen Concentration - - Weight 95.3 kg (210 lb) 08/13/2016 12:0 1 AM SALES AGENT Height 172.7 cm (5' 8) 08/13/2016 12:0 1 AM SALES AGENT Body Mass Index 31.93 08/13/2016 12:01 AM SALES AGENT Plan of Treatment Not on file
--- OUTSIDE RECORDS SUMMARY | 2025-04-13 00:18 | XMS_ITS | Clinical Summary ---
Author Organization [facility] [employer] Address [address] [place] [address] Care Team Providers Care Slitter Scorer Cut Off Operator Name Role Phone Terrance Sanchez MD Primary Care Provider [phone] Source Comments [facility],non-owned Affiliates and Associated Physician Practices is amultiple site organization consisting of ambulatory clinics and hospital sitesin [place], [place], [place] and [place]. This disclosure is being madepursuant to the Care Everywhere program and may not contain all information available regarding this patient. Last updated 18.[facility] Medications * Be aware that medications may not be up to date on this document. Alwaysverify current medications with the patient. albuterol HFA (PROVENTIL HFA) 108 (90 BASE) MCG/ACT inhaler Inhale 2 puffs by mouth q6h PRN (Wheezing). 03/23/2016 Active budesonide-form oterol (SYMBICORT) 160-4.5 MCG/ACT inhaler Inhale 2 puffs by mouth BID. 03/23/2016 Active omeprazole EC (PRILOSEC OTC) 20 MG tablet Take 1 tablet by mouth DAILY. 03/23/2016 Active montelukast (SINGULAIR) 10 MG tablet Take 10 mg by mouth DAILY. 03/23/2016 Active fluticasone propionate (FLONASE) 50 MCG/ACT nasal spray [place] 1 spray into each nostril BID. 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
--- NOTE | 2025-04-13 00:30 | ED.URI ---
HPI - URI/Sore Throat General Chief Complaint: Upper Respiratory Infection Stated Complaint: shortness of breath, sinus pressure, cough Time Seen by Provider: 04/13/25 00:03 History of Present Illness HPI Narrative: 59-year-old male with history of asthma, hypertension, hyperlipidemia presents to the emergency department for your eye symptoms. Patient states 2 days ago he developed sinus congestion, sinus pressure, postnasal drip and a dry cough. He states he has been monitoring his peak flow at home and noticed that his numbers have dropped which concerned him. He states he had some wheezing in his lungs yesterday which improved after using his rescue albuterol inhaler. Patient states he is on Trelegy, Singulair, Claritin and albuterol inhaler which he has been taking as directed. He denies fever, chest pain, shortness of breath. Related Data Home Medications ?Medication ?Instructions ?Recorded ?Confirmed ?Last Taken ?Type fluticasone propionate 50 1 spray intranasal DAILY 11/09/24 12/06/24 Unknown History mcg/actuation nasal spray,suspension (Flonase Allergy Relief) Allergies Allergy/AdvReac Type Severity Reaction Status Date / Time No Known Allergies Allergy Unknown Verified 04/12/25 21:53 Review of Systems Review of Systems: All systems reviewed & are unremarkable except as noted in HPI and below PMFSH Past Medical History Medical History Screening for colon cancer Hyperlipidemia Asthma Asthma exacerbation Chronic kidney disease With baseline creatinine between 1.5-2 Essential hypertension Seasonal allergies Vitamin D deficiency Bronchitis, not specified as acute or chronic Gastro-esophageal reflux disease without esophagitis Irregular heartbeat Schatzki's ring Unspecified asthma, uncomplicated Surgical History Surgical History Hx of partial nephrectomy 01/26/2023 with pathology returning as benign masses x2 History of right nephrectomy Due to calcifications and benign disease Family History Family History Sibling Depression Father Hypertension Family history of elevated blood lipids Cerebrovascular accident Mother Family history of sudden Other Diabetes mellitus Family history of allergic disorder Family history of cardiovascular disease Family history of coronary artery disease Social History Social History Smoking packs per day: 0.5 Smoking cigarettes per day: 10.0 Years smoked: 2 Smoking pack-years: 1.00 Smoking status: Former smoker Second hand tobacco smoke exposure: Yes Alcohol intake: current Drinks per week: 1 Substance use: never Substance use type: does not use Do You Feel Safe in your Home?: Yes Lack of Transportation: No Lack of Food: Never True Current Housing: I Have Housing Concerned About Future Housing: No Difficulty Paying Gas/Electric Bills: No Difficulty Paying for Meds: No Currently Unemployed: No Education: Trade/Vocational Certificate Difficulty w/ Childcare or Family Care: No Living arrangements: with family Occupation/Education: occupation 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 HEAD: Normocephalic, atraumatic. EYES: EOMI. ENT: Nares clear, no rhinorrhea or epistaxis. Mucous membranes moist. Bilateral TMs are vincent nonbulging with normal canals. Tenderness over the maxillary and frontal sinuses on palpation. Posterior pharynx erythema or edema, no tonsillar hypertrophy or exudates NECK: Supple. CHEST: Coarse breath sounds in the right lower lung field. No wheezing, rales or rhonchi. Patient satting 99% on room air in no respiratory distress HEART: Regular rate and rhythm. No murmur heard. Normal peripheral pulses. ABDOMEN: Soft, nontender, nondistended, normal active bowel sounds. EXTREMITIES: Normal range of motion. No edema. SKIN: Warm, dry, no rash. NEURO: No focal deficits. Alert and oriented x3 Course Vital Signs Vital signs: Vital Signs Temperature 98.2 F 04/12/25 21:51 Pulse Rate 95 04/12/25 21:51 Respiratory Rate 18 04/12/25 21:51 Blood Pressure 172/102 H 04/12/25 21:51 Pulse Oximetry 98 04/12/25 21:51 Oxygen Delivery Room Air 04/12/25 21:51 Temperature 98.0 F 04/13/25 00:19 Pulse Rate 99 04/13/25 02:21 Respiratory Rate 16 04/13/25 02:21 Blood Pressure 154/98 H 04/13/25 02:21 Pulse Oximetry 99 04/13/25 02:21 Oxygen Delivery Room Air 04/13/25 00:20 MDM - URI/Sore Throat MDM Narrative Medical decision making narrative: 59-year-old male with history of hypertension and asthma presents to the emergency department for your eye symptoms for the past 2 days. Triage vitals with hypertension, otherwise unremarkable. Patient is afebrile and nontoxic appearing. He is satting 99% on room air in no respiratory distress. Exam is significant for the above. CBC without leukocytosis or anemia. Chemistries with stable CKD. Viral swabs are negative. Chest x-ray shows no focal consolidation pleural effusion or pneumothorax. Patient received DuoNebs and Solu-Medrol with improvement in symptoms. Vital signs remained stable and patient remains in no respiratory distress. Suspect asthma exacerbation. Will start him on steroids. Advised to continue using his singular, trilogy, Claritin and albuterol inhaler. He states he does not need any refills. Will also provide Flonase for sinus congestion. Advised to follow-up closely with his PCP discussed strict ED return precautions. Patient is agreeable with the plan verbalized understanding. Discharged in stable condition. Lab Data 04/13/25 00:37 04/13/25 00:37 Labs: Lab Results 04/12/25 04/13/25 Range/Units 23:15 00:37 WBC 8.6 (4.5-10.0) K/mm3 RBC 5.36 (4.6-6.20) M/mm3 Hgb 16.3 D (14.0-18.0) g/dL Hct 48.8 (42.0-52.0) % MCV 91.0 (80-100) fl MCH 30.4 (26-34) pg MCHC 33.4 (32-36) g/dl RDW 13.2 (11.5-14.5) % Plt Count 266 (150-375) k/mm3 MPV 10.6 H (7.4-10.4) fl Immature Gran % (Auto) 1.2 H (0-0.5) % Neut % (Auto) 62.7 (45.5-73.1) % Lymph % (Auto) 24.9 (18.3-44.2) % [place] % (Auto) 9.4 H (2.6-8.5) % Eos % (Auto) 1.2 (0-4.4) % Baso % (Auto) 0.6 (0.2-1.2) % Lymph # (Auto) 2.14 (0.9-3.2) K/mm3 [place] # (Auto) 0.8 H (0.1-0.6) K/mm3 Eos # (Auto) 0.1 (0-0.3) K/mm3 Baso # (Auto) 0.1 (0.0-0.1) K/mm3 Abs Immat Gran (auto) 0.10 H (0.00-0.031) K/mm3 Absolute Neuts (auto) 5.4 (1.3-6.7) K/mm3 Absolute Nucleated RBC 0.000 (0.0-0.012) K/mm3 Nucleated RBC % 0.0 (0.0-0.2) % Sodium 138 (137-145) mmol/L Potassium 4.0 (3.4-5.0) mmol/L Chloride 102 (98-107) mmol/L Carbon Dioxide 25 (22-30) mmol/L Anion Gap 11 (4-12) mmol/L BUN 20 (9-20) mg/dL Creatinine 1.60 H (0.7-1.3) mg/dL Estim Creat Clear Calc 46 ml/min Estimated GFR 44 L (59 - ) Glucose 103 (65-110) mg/dL Calcium 9.9 (8.4-10.2) mg/dL Total Bilirubin 0.6 (0.2-1.3) mg/dL AST 31 (17-59) U/L ALT 22 (6-50) U/L Alkaline Phosphatase 110 (38-126) U/L Total Protein 8.6 H (6.3-8.2) g/dL Albumin 4.7 (3.5-5.1) g/dL Influenza A (RT-PCR) Negative (Negative) Influenza B (RT-PCR) Negative (Negative) RSV (RT-PCR) Negative (Negative) SARS-CoV-2 RNA (RT-PCR) Negative (Negative) Discharge Plan Discharge Clinical Impression: Asthma exacerbation Qualifiers: Asthma severity: unspecified severity Asthma persistence: unspecified Qualified Code(s): J45.901 - Unspecified asthma with (acute) exacerbation Patient Disposition: Home Condition: Stable Instructions: Antibiotic Form, Asthma (ED) Additional Instructions: Please take your medications as directed and continue using your inhalers at home. Follow-up closely with her primary care provider. Return to the emergency department if develop chest pain, shortness of breath, fever or other concerning symptoms. Patient Language: Ug[place] Prescriptions: New prednisone 20 mg tablet 40 mg PO DAILY Qty: 10 0RF fluticasone propionate [Flonase Allergy Relief] 50 mcg/actuation spray,suspension 1 spray intranasal Q12H Qty: 16 0RF Rx Instructions: administer into each nostril No Action albuterol sulfate 90 mcg/actuation HFA aerosol inhaler 2 inh inhalation Q4H PRN (Reason: shortness of breath or wheezing) Qty: 8.5 3RF fluticasone propionate [Flonase Allergy Relief] 50 mcg/actuation spray,suspension 1 spray intranasal DAILY Rx Instructions: administer into each nostril Claritin-D 12 Hour 5-120 mg tablet extended release 12 hr 1 tablet PO Q12H Qty: 60 2RF amlodipine 5 mg tablet 5 mg PO DAILY Qty: 30 3RF montelukast [Singulair] 10 mg tablet 10 mg PO DAILY Qty: 30 1RF Trelegy Ellipta 200-62.5-25 mcg blister with device 1 inh inhalation DAILY Qty: 28 3RF Follow-up/Referrals: Geneva Borrero APRN [Primary Care Provider, Family Practice]
[2025-04-13] MEDS: IPRATROPIUM 0.5 MG/ALBUTEROL SULFATE 2.5 MG AMPUL.NEB 3 ML INHALATION ×3 (00:46→01:05)
[2025-04-13 00:59] LABS: Hematocrit 48.8 % (42.0-52.0); Hemoglobin 16.3 g/dL (14.0-18.0); Immature Granulocyte Percent A 1.2 % (0-0.5); Lymphocytes Absolute Auto 2.14 K/mm3 (0.9-3.2); Mean Corpuscular HGB Conc 33.4 g/dl (32-36); Mean Corpuscular Hemoglobin 30.4 pg (26-34); Mean Corpuscular Volume 91.0 fl (80-100); Nucleated Red Blood Cells Absolute Auto 0.000 K/mm3 (0.0-0.012); Nucleated Red Blood Cells Perc 0.0 % (0.0-0.2); Platelet Count Result 266 k/mm3 (150-375); Red Blood Count 5.36 M/mm3 (4.6-6.20); White Blood Count 8.6 K/mm3 (4.5-10.0)
[2025-04-13 01:10] LABS: Alanine Aminotransferase 22 U/L (6-50); Albumin Level 4.7 g/dL (3.5-5.1); Alkaline Phosphatase 110 U/L (38-126); Anion Gap 11 mmol/L (4-12); Aspartate Amino Transferase 31 U/L (17-59); Bilirubin,Total 0.6 mg/dL (0.2-1.3); Blood Urea Nitrogen 20 mg/dL (9-20); Calcium 9.9 mg/dL (8.4-10.2); Carbon Dioxide 25 mmol/L (22-30); Chloride 102 mmol/L (98-107); Estimated CRCL calculation 46 ml/min; Estimated Glomerular Filt Rate 44; Glucose 103 mg/dL (65-110); Potassium 4.0 mmol/L (3.4-5.0); Sodium 138 mmol/L (137-145); Total Protein 8.6 g/dL (6.3-8.2)
== END 2025-04-13 03:02 | disposition home or self-care (01) ==
PROVIDERS: Student in an Organized Health Care Education/Training Program; Emergency Provider Physician Assistant; PCP Nurse Practitioner Adult Health
DX: J45.901 Unspecified asthma with (acute) exacerbation (principal); Z20.822 Contact with and (suspected) exposure to COVID-19; E78.5 Hyperlipidemia, unspecified; I12.9 Hypertensive chronic kidney disease with stage 1 through stage 4 chronic kidney disease, or unspecified chronic kidney disease; N18.9 Chronic kidney disease, unspecified; E55.9 Vitamin D deficiency, unspecified; K21.9 Gastro-esophageal reflux disease without esophagitis; Z90.5 Acquired absence of kidney; Z87.891 Personal history of nicotine dependence
CPT/HCPCS: 36415; 71046; 80053; 85025; 87637; 94640; 96374; 99284; J2919

== ENCOUNTER 2025-05-30 10:40 | Outpatient (CLI) | payer OTHER, SELFPAY ==
--- NOTE | 2025-06-06 12:51 | WPDPFTINT ---
PFT Procedure Performed PFT Procedure Performed Spirometry with Pre/Post Bronchodilator Plethysmography (Lung Vol) Diffusing Cap (DLCO) Flow Vol Loop PFT Interpretation DOS: 05/30/2025 REQUESTING: Markell Pierce APRN REASON FOR TESTING: asthma PULMONARY FUNCTION TESTS Results are reliable and reproducible. Repeatability of spirometry FEV1 maneuver pre and post bronchodilator is Grade A. Richard: [facility] 2012 reference equations were used. Spirometry: The pre-bronchodilator FEV1 is 3.03 L, 94%, normal. The pre-bronchodilator FVC is 3.84 L, 93%, normal. The FEV1/FVC ratio is 79%, normal. After bronchodilator, the FEV1 is 3.24 L, 101%, +7. After bronchodilator, the FVC is 3.82 L, 93%, no change. The FEV1/FVC ratio is 85%. Lung volumes: The total lung capacity is 5.97 L, 94%, normal. The functional residual capacity is 2.92 L, 89%, normal. The residual volume is 1.72 L, 82%, normal. The RV/TLC is 29%, normal. Airway resistance is normal. Diffusion: DLCO is 21.2, 79%. The DLCO/VA is 4.51, 103%. Flow volume loop: The flow volume loop shows a normal tracing. IMPRESSION: Normal spirometry without response to bronchodilator, normal lung volumes, normal diffusion. Lack of response to bronchodilator should not preclude use if clinically indicated. No prior studies to compare. Christine Marks MD
--- NOTE | 2025-06-06 12:54 | WPDSIXMINUTE ---
Six Minute Walk Procedure Procedure Performed Pulmonary Stress Test (6 min walk) Six Minute Walk Six Minute Walk: DATE OF SERVICE: 05/30/2025 REQUESTING: Markell Pierce APRN REASON FOR TESTING: Asthma SIX MINUTE WALK This test was conducted per ATS guidelines. The initial saturation was 99%, and initial heart rate was 72 beats per minute. The patient walked breathing room air and without walking aids, without stopping, completing 335.3 m/1100 ft. The saturation at the end of testing was 99%, and the heart rate was 89 beats per minute. The saturation was 92-93% during most of the walk. The Azar score for fatigue and dyspnea was 2 initially, and 3 at the end of testing. IMPRESSION: This is a normal study. The patient did not require supplemental oxygen with exertion. Christine Marks MD
== END 2025-05-30 10:41 | disposition home or self-care (01) ==
PROVIDERS: PCP Nurse Practitioner Adult Health; Visit Provider Nurse Practitioner Family
DX: J45.909 Unspecified asthma, uncomplicated (principal)
CPT/HCPCS: 94060; 94618; 94726; 94729

== ENCOUNTER 2025-08-07 20:23 | Emergency (ER) | payer OTHER, SELFPAY ==
--- NOTE | ~2025-08-07 | XR_ITS ---
Examination: XR chest 2V Clinical History: SHOB Comparison: 04/13/2025 Technique: PA and Lateral Findings: Cardiomediastinal silhouette normal size and configuration. Lungs clear. No acute bony abnormality. IMPRESSION: 1. No acute cardiopulmonary findings. Reviewed, dictated and finalized at location R. RACT LAW SPECIALIST
[2025-08-07 20:25] VITALS: BP 176/100; PULSE 90; RESP 18; TEMP 36.6; O2SAT 100
--- OUTSIDE RECORDS SUMMARY | 2025-08-07 20:25 | XMS_ITS | Encounter Summary ---
Author Organization [facility] Healthcare Address [address] [place] [address] Care Team Providers Care Corpsman Name Role Phone Terrance Sanchez MD Primary Care Provider [phone] Tolu Conde MD Unavailable [phone] Encounter Details Date Type Department Care Team (Late st Contact Info) Description 02/17/2023 Telephone [facility] - Interventional Radiology [address] [place] [address] Martell Stearns, RN Social History [...] How often do you attend chur or taoist services? More than 4 times per year 02/05/2023 Do you belong to any clubs o r organizations such as orthodoxy groups, unions, fraternal or athletic groups, or [...] place to sleep or slept in a jail (including now)? No 02/05/2023 Personal Safety Answer Date Recorded Have you ever been in or are you currently in a harmful physical or emotional relationship or is someone making you feel afraid or unsafe? 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
--- OUTSIDE RECORDS SUMMARY | 2025-08-07 20:25 | XMS_ITS | Clinical Summary ---
Author Organization [facility] Address [address] [place] [address] Care Team Providers Care Tie Hacker Name Role Phone Terrance Sanchez MD Primary Care Provider [phone] Source Comments [facility],non-owned Affiliates and Associated Physician Practices is amultiple site organization consisting of ambulatory clinics and hospital sitesin [place], [place]. This disclosure is being madepursuant to the Care Everywhere program and may not contain all information available regarding this patient. Last updated 18.[facility] Medications * Be aware that medications may [...] fluticasone propionate (FLONASE) 50 MCG/ACT nasal spray [place] 1 spray into each nostril BID. 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
--- OUTSIDE RECORDS SUMMARY | 2025-08-07 20:25 | XMS_ITS | Clinical Summary ---
Author Organization [employer] [facility] Address [address] [facility] [place] [address] Care Team Providers Care Ice Cream Truck Driver Name Role Phone Pcp, No Primary Care Provider [phone] Social History Tobacco Use Types Packs/Day Years Used Date Smoking Tobacco: Never Assessed Sex and Gender Information Value Date Recorded Sex Assigned at Not on file Legal Sex Male 3:59 PM EDT Gender Identity Not on file Sexual Orientation Not on file Plan of Treatment Not on file Medical Devices Not on file Insurance [employer]/ [employer] 1985 Care Teams Ice Cream Truck Driver Relationship Specialty Start Date End Date Renata Meyer PCP - General Family Medicine 06/14/21
--- OUTSIDE RECORDS SUMMARY | 2025-08-07 20:25 | XMS_ITS | Clinical Summary ---
Author Organization [facility] Address [address] [place] [id number] Phone Care Team Providers Care Disability Liaison Officer Name Role Phone Unavailable Primary Care Provider [...] Comments Blood Pressure 122/72 08/13/2016 12:01 AM INDUSTRIAL TRUCK OPERATOR Sitting, Right Pulse - - Temperature 36.9 C (98.4 F) 08/13/2016 12:01 AM INDUSTRIAL TRUCK OPERATOR Respiratory Rate 18 02/13/2016 12:0 1 AM CDT Oxygen Saturation - - Inhaled Oxygen Concentration - - Weight 95.3 kg (210 lb) 08/13/2016 12:0 1 AM INDUSTRIAL TRUCK OPERATOR Height 172.7 cm (5' 8) 08/13/2016 12:0 1 AM INDUSTRIAL TRUCK OPERATOR Body Mass Index 31.93 08/13/2016 12:01 AM INDUSTRIAL TRUCK OPERATOR Plan of Treatment Not on file
--- NOTE | 2025-08-07 23:36 | ECG_ITS ---
Test Date: 2025-08-07 23:39:14 Measurements Intervals [place] Rate: 74 P: 41 CO: 187 QRS: 11 QRSD: 83 T: 42 QT: 353 QTc: 392 Interpretive Statements SINUS RHYTHM EARLY PRECORDIAL R/S TRANSITION VOLTAGE CRITERIA FOR LVH BASELINE ARTIFACT- I, II, III, AVL, AVF, V3 BORDERLINE ECG No previous ECG available for comparison Electronically Signed On 08-08-2025 07:28:38 SENIOR ADVOCATE by Sebastian Lowry D.O.
[2025-08-08 00:18] VITALS: BP 169/106; PULSE 74; RESP 18; TEMP 36.8; O2SAT 100
[2025-08-08 00:23] LABS: Influenza A QL RT-PCR Negative (Negative); Influenza B QL RT-PCR Negative (Negative); RSV RNA, RT-PCR Negative (Negative); SARS-CoV-2 RNA PCR Negative (Negative)
--- NOTE | 2025-08-08 02:10 | ED_ITS ---
HPI - URI/Sore Throat General Chief Complaint: Upper Respiratory Infection Stated Complaint: Shortness of [id number]-pexdscwmdo Time Seen by Provider: 08/08/25 01:56 History of Present Illness HPI Narrative: 59-year-old male with a past medical history including asthma and sinus issues presenting to the emergency department today with shortness of breath with improvement with nebulization treatments but short-lived. Patient presents to the ED from walk in triage. States he has a history of asthma of and been seen by his nuclear medicine tech and ENT recently. No recent steroids or changes to his regimen. He thinks the weather is causing his asthma to flare up on him. No other recent illnesses. Denies any fever, chills. Has a nonproductive dry cough denies any other triggers or new allergens at home. Has been using his nebulization treatments with improvement in his symptoms and his peak flow measurements at home but then quickly feels worse after they wear off. Denies any chest pain, nausea, vomiting, headache, vision changes, back pain, abdominal pain. No traumatic injuries. No recent hospitalizations but he has had previous pneumonia. Related Data Allergies Allergy/AdvReac Type Severity Reaction Status Date / Time No Known Allergies Allergy Unknown Verified 08/01/25 14:26 Review of Systems Review of Systems: As reviewed above in HPI All systems reviewed & are unremarkable except as noted in HPI and below PMFSH Past Medical History Medical History Screening for colon cancer Hyperlipidemia Asthma Asthma exacerbation Chronic kidney disease With baseline creatinine between 1.5-2 Essential hypertension Seasonal allergies Vitamin D deficiency Bronchitis, not specified as acute or chronic Gastro-esophageal reflux disease without esophagitis Irregular heartbeat Schatzki's ring Unspecified asthma, uncomplicated Surgical History Surgical History Hx of partial nephrectomy 01/26/2023 with pathology returning as benign masses x2 History of right nephrectomy Due to calcifications and benign disease Family History Family History Sibling Depression Father Hypertension Family history of elevated blood lipids Cerebrovascular accident Mother Family history of sudden Other Diabetes mellitus Family history of allergic disorder Family history of cardiovascular disease Family history of coronary artery disease Social History Social History Smoking packs per day: 0.5 Smoking cigarettes per day: 10.0 Years smoked: 2 Smoking pack-years: 1.00 Smoking status: Former smoker Second hand tobacco smoke exposure: Yes Smoking end date: 08/10/84 Alcohol intake: current Drinks per week: 1 Substance use: never Substance use type: does not use Lack of Transportation: No Lack of Food: Never True Current Housing: I Have Housing Concerned About Future Housing: No Difficulty Paying Gas/Electric Bills: No Difficulty Paying for Meds: No Currently Unemployed: No Education: Trade/Vocational Certificate Difficulty w/ Childcare or Family Care: No Living arrangements: with family Occupation/Education: occupation 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 Mucous membranes moist. NECK: Supple. CHEST: Diminished air entry bilaterally but no prolonged expiratory phase or asymmetric breath sounds. No tachypnea. Phonating appropriately and speaking in clear sentences without any dyspnea. HEART: [Regular rate and rhythm]. No murmur heard. [Normal peripheral pulses.] ABDOMEN: [Soft, nondistended], [nontender], [No rigidity or guarding] EXTREMITIES: Normal range of motion. [No edema.] SKIN: Warm, dry, no rash. NEURO: [No focal deficits]. Alert and oriented [x3.] PSYCH: [Normal mood and affect.] Course Vital Signs Vital signs: Vital Signs Temperature 36.6 C 08/07/25 20:25 Pulse Rate 90 08/07/25 20:25 Respiratory Rate 18 08/07/25 20: Blood Pressure 176/100 H 08/07/25 20:25 Pulse Oximetry 100 08/07/25 20:25 Oxygen Delivery Room Air 08/07/25 20:25 Temperature 36.7 C 08/08/25 06:00 Pulse Rate 90 08/08/25 06:00 Respiratory Rate 18 08/08/25 06:00 Blood Pressure 136/91 H 08/08/25 06:00 Pulse Oximetry 98 08/08/25 06:00 Oxygen Delivery Room Air 08/07/25 20:25 [facility] Narrative Medical decision making narrative: 59-year-old male with a past medical history including asthma and sinus issues presenting to the emergency department today with shortness of breath with impro vement with nebulization treatments but short-lived. Patient presents to the ED from walk in triage. States he has a history of asthma of and been seen by his nuclear medicine tech and ENT recently. No recent steroids or changes to his regimen. He thinks the weather is causing his asthma to flare up on him. No other recent illnesses. Denies any fever, chills. Has a nonproductive dry cough denies any other triggers or new allergens at home. Has been using his nebulization treatments with improvement in his symptoms and his peak flow measurements at home but then quickly feels worse after they wear off. Denies any chest pain, nausea, vomiting, headache, vision changes, back pain, abdominal pain. No traumatic injuries. No recent hospitalizations but he has had previous pneumonia. Patient does have diminished air entry bilaterally but not any respiratory distress and able to speak in clear full sentences. No rhonchi or rales. No asymmetric breath sounds. He is not tachycardic or hypoxic. Hypertensive but not severe. Suspect asthma exacerbation verses bronchitis versus pneumonia versus viral syndrome, COVID, flu. Patient was given albuterol and Atrovent treatment as well as Decadron and azithromycin. X-ray shows no focal consolidations but maybe some bronchial cough thickening on my evaluation possibly bronchitis. Will evaluate after treatment to see how he responds. Se ems like a good candidate for outpatient therapy with steroids and short course of antibiotics if improved as he has close outpatient follow-up and understands strict return precautions. Differential Diagnosis Differential Diagnosis: Suspect asthma exacerbation verses bronchitis versus pneumonia versus viral syndrome, COVID, flu. Lab Data [facility] Lab Attestation statement: I personally reviewed the patient's lab results. Labs: Lab Results 08/07/25 Range/Units 23:41 Influenza A (RT-PCR) Negative (Negative) Influenza B (RT-PCR) Negative (Negative) RSV (RT-PCR) Negative (Negative) SARS-CoV-2 RNA (RT-PCR) Negative (Negative) Imaging Data Attestation: I personally reviewed and interpreted this imaging study as foll ows: My impression: No PNA Radiologist's impression: ITS Impressions Chest X-Ray 08/08/25 06:17 IMPRESSION: 1. No acute cardiopulmonary findings. Discharge Plan Discharge Clinical Impression: Asthma exacerbation Patient Disposition: Home Condition: Stable Instructions: Antibiotic Form, Asthma (DC), Acute Bronchitis (ED) Additional Instructions: We have sent you home with steroids and a short course of antibiotics. Follow- up with your regular doctors and return with any emergent concerns at any time. Patient Language: Belgian Prescriptions: New prednisone 50 mg tablet 50 mg PO DAILY 5 Days Qty: 5 0RF azithromycin [Zithromax TRI-ALFREDO] 500 mg tablet 500 mg PO DAILY 5 Days Qty: 5 0RF No Action Airsupra 90-80 mcg/actuation HFA aerosol inhaler 2 inh inhalation Q4-6H PRN (Reason: shortness of breath) 30 Days Qty: 10.7 2RF Rx Instructions: as a single dose; may repeat up to 6 doses per day (12 inhalations) pantoprazole 20 mg tablet,delayed release (DR/EC) 20 mg PO QHS Qty: 30 2RF Trelegy Ellipta 200-62.5-25 mcg blister with device 1 inh inhalation DAILY Qty: 60 5RF Rx Instructions: rinse and spit (DME) nebulizers [Altera Nebulizer System] Misc See Rx Instructions .Route Qty: 1 0RF Rx Instructions: As directed albuterol sulfate 90 mcg/actuation HFA aerosol inhaler 2 inh inhalation Q4H PRN (Reason: shortness of breath or wheezing) Qty: 8.5 3RF amlodipine 5 mg tablet 5 mg PO DAILY Qty: 30 3RF Claritin-D 12 Hour 5-120 mg tablet extended release 12 hr 1 tablet PO Q12H Qty: 60 2RF montelukast [Singulair] 10 mg tablet 10 mg PO DAILY Qty: 30 1RF albuterol sulfate 1.25 mg/3 mL solution for nebulization 1.25 mg inhalation Q4-6H PRN (Reason: shortness of breath or wheezing) Qty: 90 0RF Follow-up/Referrals: Geneva Borrero APRN [Primary Care Provider, Family Practice] Time of Disposition: 05:46
[2025-08-08] MEDS: ALBUTEROL SULFATE NEB 2.5 MG/3 ML INH 10 MG INHALATION (02:13)
[2025-08-08] MEDS: IPRATROPIUM BR 0.02% INH SOLN 0.5 MG/2.5 ML VIAL 1 MG INHALATION (02:14)
[2025-08-08 02:15] VITALS: PULSE 74; RESP 20
[2025-08-08] MEDS: AZITHROMYCIN 500 MG TABLET PO (02:35)
[2025-08-08] MEDS: dexAMETHasone SOD PHOS INJ 10 MG/ML 1 ML VIAL IM (02:35)
[2025-08-08 03:22] VITALS: PULSE 109; RESP 20
[2025-08-08 06:00] VITALS: BP 136/91; PULSE 90; RESP 18; TEMP 36.7; O2SAT 98
== END 2025-08-08 06:24 | disposition home or self-care (01) ==
PROVIDERS: Emergency Provider Student in an Organized Health Care Education/Training Program; PCP Nurse Practitioner Adult Health
DX: J45.901 Unspecified asthma with (acute) exacerbation (principal); Z20.822 Contact with and (suspected) exposure to COVID-19; I12.9 Hypertensive chronic kidney disease with stage 1 through stage 4 chronic kidney disease, or unspecified chronic kidney disease; N18.9 Chronic kidney disease, unspecified; E78.5 Hyperlipidemia, unspecified; E55.9 Vitamin D deficiency, unspecified; K21.9 Gastro-esophageal reflux disease without esophagitis; Z87.891 Personal history of nicotine dependence; Z90.5 Acquired absence of kidney; Z79.899 Other long term (current) drug therapy
CPT/HCPCS: 71046; 87637; 93005; 94640; 96372; 99284; J1100